=== PATIENT | male | born 1950 | race Caucasian/White ===

== ENCOUNTER 2016-03-04 22:39 | Emergency (ER) | payer MEDICARE ==
[~2016-03-04] VITALS: Ht 172.7 cm; Wt 75.3 kg
[~2016-03-04 22:39] MED LIST: ASPI81TA2 PO; CLOP75TA PO; DEXL60CA PO; DICL75TA PO; DULO30CA2 PO; DULO60CA6 PO; FURO40TA4 PO; INSU100I17 SQ; INSU100V SQ; INSU100V13 SQ; LISI2.5T PO; METO25TA9 PO; MUPI22OI2 TP; NITR0.4T SL; POTA20TA4 PO; SIMV40TA3 PO; VENTOLIN HFA18 GM INH
--- NOTE | 2016-03-05 00:19 | ED.ADGEN ---
Past Medical History Past Medical History: Arrhythmia, CAD, CHF, COPD, Depression, Diabetes-Type II , Other Additional Past Medical Histor: insomnia Past Surgical History: Pacemaker, Other Additional Past Surgical Histo: cardiac cath with stent, removal of cyst from back, STENT IN LT LEG Alcohol Use: None Drug Use: None Adult General Chief Complaint Chief Complaint: OVERDOSE HPI HPI Patient is a 65 year old man, history of COPD, type 2 diabetes mellitus, hypertension, hyperlipidemia, who presents to the emergency department concerned that he may overdosed on his Humalog. Patient states that he came home from work today, and had dinner around 7:00, states that he had before. He states that he took 20 units of his Humalog at 9 PM, states that he wanted eat some ice cream, so he checked his blood sugar about an hour later and noted that it was 415, he then took an additional 20 units of this Humalog. Patient states that he then became concerned that he may overdose and his insulin. He contacted poison control, who told him that he should come to the ED for evaluation, with concerns that he may become hypoglycemic while he was sleeping. States he is having no other symptoms, and is feeling well. Blood glucose upon arrival to the emergency department is 283. Patient states that his sugars usually run between the 100s to 100s, but that he does not check them as often as he is supposed to. And he often just takes his medication without checking his blood sugar. Patient states that he is certain that he last took his Humalog at around 10 PM. Review of Systems Review of Systems Constitutional: Denies fever or chills. [] Eyes: Denies change in visual acuity. [] HENT: Denies nasal congestion or sore throat. [] Respiratory: Denies cough or shortness of breath. [] Cardiovascular: Denies chest pain or edema. [] GI: Denies abdominal pain, nausea, vomiting, bloody stools or diarrhea. [] : Denies dysuria. [] Musculoskeletal: Denies back pain or joint pain. [] Integument: Denies rash. [] Neurologic: Denies headache, focal weakness or sensory changes. [] Endocrine: Denies polyuria or polydipsia. [] Lymphatic: Denies swollen glands. [] Psychiatric: Denies depression or anxiety. [] Allergies Allergies Allergies Coded Allergies Type Severity Reaction Last Updated Verified No Known Drug Allergies 02/01/16 No Physical Exam Physical Exam Constitutional: Well developed, well nourished, no acute distress, non-toxic appearance. [] HENT: Normocephalic, atraumatic, bilateral external ears normal, oropharynx moist, no oral exudates, nose normal. [] Eyes: PERRLA, EOMI, conjunctiva normal, no discharge. [] Neck: Normal range of motion, no tenderness, supple, no stridor. [] Cardiovascular:Heart rate regular rhythm, no murmur , S1, S2, rubs or gallops. [ ] Lungs & Thorax: Diminished breath sounds present at the bases bilaterally, no rhonchi, rales noted, no wheezing, no chest tenderness or crepitus. [] Abdomen: Bowel sounds normal, soft, no tenderness, no masses, no pulsatile masses. [] Skin: Warm, dry, no erythema, no rash. [] Back: No tenderness, no CVA tenderness. [] Extremities: No tenderness, no cyanosis, no clubbing, ROM intact, no edema. [] Neurologic: Alert and oriented X 3, normal motor function, normal sensory function, no focal deficits noted. [] Psychologic: Affect normal, judgement normal, mood normal. [] Current Patient Data Vital Signs Vital Signs Date Time Temp Pulse Resp B/P Pulse Ox O2 Delivery O2 Flow Rate FiO2 03/05/16 00:47 89 127/77 95 Room Air 03/04/16 22:46 97.6 16 97.6 Lab Values Laboratory Tests Test 03/05/16 00:08 03/05/16 00:47 Glucose (Fingerstick) 158mg/dL (70-99) H 125mg/dL (70-99) H EKG EKG ECG: Rhythm strip: Sinus rhythm, heart rate 80 bpm, no ectopy. As interpreted by me. Radiology/Procedures Radiology/Procedures Not indicated. [] Course & Med Decision Making Course & Med Decision Making Pertinent Labs and Imaging studies reviewed. (See chart for details) Patient takes Lantus, in the morning and at night, has not yet taken his nighttime Lantus. Patient well-appearing, has no complaints. Discussed with patient that the peak time for Humalog is about 2 hours after administration, therefore he will soon be at 2 hours after menstruation, and about an hour. Discussed with patient that we will continue to monitor in here, repeat blood sugar at 2 hours and 2 and half hours, and if his sugars still within range is expressing no symptoms, then he'll be cleared to be discharged home. Patient voiced understanding and agreement with this plan, resting comfortably awaiting sugar rechecked. At midnight, 3 hours out from the initial administration of short acting insulin, patient's glucose is 158. At 12:30, patient's blood glucose is now 125. Patient remains asymptomatic in the ED, and he states that he is ready to go home. He states that he will return to the ED if any concerning symptoms as discussed with him at bedside to develop. Patient's only present with him at home. I discussed the patient importance of taking medications as directed, and checking his sugars as directed by his primary care provider. Patient voiced understanding and agreement, will follow up with his primary care provider as for reevaluation of his medication regimen, he'll return to the ED for concerning symptoms as discussed. Dragon Disclaimer Dragon Disclaimer This electronic medical record was generated, in whole or in part, using a voice recognition dictation system. Departure Impression: Primary Impression: Insulin dependent type 2 diabetes mellitus Disposition: HOME, SELF-CARE Condition: IMPROVED LUCY SQUIRES DO Mar 05, 2016 00:19
[2016-03-05 00:47] VITALS: BP 127/77
== END 2016-03-05 01:09 | disposition home or self-care (01) ==
LOC: ER 22:39
DX: E11.9 Type 2 diabetes mellitus without complications (principal); F32.9 Major depressive disorder, single episode, unspecified; G47.00 Insomnia, unspecified; E78.5 Hyperlipidemia, unspecified; I25.10 Atherosclerotic heart disease of native coronary artery without angina pectoris; I11.0 Hypertensive heart disease with heart failure; I50.9 Heart failure, unspecified; Z79.4 Long term (current) use of insulin; J44.9 Chronic obstructive pulmonary disease, unspecified; Z95.0 Presence of cardiac pacemaker; Z95.5 Presence of coronary angioplasty implant and graft
CPT/HCPCS: 82947; 99283

== ENCOUNTER 2016-09-14 00:43 | Emergency (ER) | payer MEDICARE ==
[~2016-09-14] VITALS: Ht 172.7 cm; Wt 77.6 kg
[~2016-09-14 00:43] MED LIST changes: +ASPI-630 PO; -ASPI81TA2 PO; -DEXL60CA PO; +DEXL60CA2 PO
--- NOTE | 2016-09-14 02:59 | ED.ADGEN ---
Past Medical History Past Medical History: Dementia, Diabetes-Type II, High Cholesterol, Other Additional Past Medical Histor: 3 mi's, 3 cva Past Surgical History: Other Additional Past Surgical Histo: 6 stents placed Alcohol Use: None Drug Use: None Adult General Chief Complaint Chief Complaint: BLOOD SUGAR PROBLEM HPI HPI Patient is a 66 year old male with IDDM who presents with AMS and hypoglycemia [employer]. Patient was confused and diaphoretic. Blood sugar was 25. Patient ate and drank with persistent low blood sugar in the 50s. Blood sugar 94 per EMS. No other acute symptoms or complaints. Patient takes Lantus and novlog. last took insulin at 8 PM and last ate at 7 PM. No change in insulin. Patient's spouse state patient may have accidently taking additional insulin this evening. recent illnesses. No other acute symptoms or complaints. Review of Systems Review of Systems ROS as per HPI. Allergies Allergies Allergies Coded Allergies Type Severity Reaction Last Updated Verified No Known Drug Allergies 02/01/16 No Physical Exam Physical Exam Constitutional: Well developed, well nourished, no acute distress, non-toxic appearance. [] HENT: Normocephalic, atraumatic, bilateral external ears normal, oropharynx moist, no oral exudates, nose normal. [] Eyes: PERRLA, EOMI, conjunctiva normal, no discharge. [] Neck: Normal range of motion, no tenderness, supple, no stridor. [] Cardiovascular:Heart rate regular rhythm, no murmur [] Lungs & Thorax: Bilateral breath sounds clear to auscultation [] Abdomen: Bowel sounds normal, soft, no tenderness, no masses, no pulsatile masses. [] Skin: Warm, dry, no erythema, no rash. [] Back: No tenderness, no CVA tenderness. [] Extremities: No tenderness, no cyanosis, no clubbing, ROM intact, no edema. [] Neurologic: Alert and oriented X 3, normal motor function, normal sensory function, no focal deficits noted. [] Psychologic: Affect normal, judgement normal, mood normal. [] Current Patient Data Vital Signs Vital Signs Date Time Temp Pulse Resp B/P (MAP) Pulse Ox O2 Delivery O2 Flow Rate FiO2 09/14/16 00:58 97.5 82 17 154/81 (105) 95 Room Air 97.5 Lab Values Laboratory Tests Test 09/14/16 00:55 09/14/16 01:55 Glucose (Fingerstick) 95 mg/dL (70-99) 94 mg/dL (70-99) EKG EKG [] Radiology/Procedures Radiology/Procedures [] Course & Med Decision Making Course & Med Decision Making Pertinent Labs and Imaging studies reviewed. (See chart for details) [Patient fell upon being brought to the emergency department closely monitored. Repeat blood sugars remain greater than 70. Recommend closely monitoring blood sugars upon returning home and rechecking insulin doses prior to administration. PCP follow-up as needed. Return precautions reviewed.] Dragon Disclaimer Dragon Disclaimer This electronic medical record was generated, in whole or in part, using a voice recognition dictation system. CYNTHIA MARRERO DO Sep 14, 2016 02:59
[2016-09-14 03:00] VITALS: BP 142/66
== END 2016-09-14 03:08 | disposition home or self-care (01) ==
LOC: ER 00:43
DX: E11.649 Type 2 diabetes mellitus with hypoglycemia without coma (principal); E78.00 Pure hypercholesterolemia, unspecified; F03.90 Unspecified dementia, unspecified severity, without behavioral disturbance, psychotic disturbance, mood disturbance, and anxiety; Z86.73 Personal history of transient ischemic attack (TIA), and cerebral infarction without residual deficits; Z79.4 Long term (current) use of insulin; Z95.5 Presence of coronary angioplasty implant and graft
CPT/HCPCS: 82962; 99283

== ENCOUNTER 2017-02-24 10:47 | Inpatient (IN) | payer MEDICARE ==
[2017-02-24] MEDS: IV NORMAL SALINE 1000ML BAG 1,000 ML IV ×5 (12:15→23:07)
[2017-02-24] MEDS: ONDANSETRON PF 4 MG/2 ML VIAL. IV (12:17)
[2017-02-24 12:20] LABS: ADD MAN DIFF? NO
[2017-02-24 12:36] LABS: INR 1.1 (0.8-1.1); PARTIAL THROMBOPLASTIN TIME 26 SEC (24-38); PROTHROMBIN TIME PATIENT 13.7 SEC (11.7-14.0)
[2017-02-24 12:40] LABS: ETHANOL < 10 mg/dL (0-10)
[2017-02-24 12:46] LABS: TROPONINI < 0.017 ng/mL (0.000-0.055)
[2017-02-24 12:47] LABS: ALBUMIN 4.1 g/dL (3.4-5.0); ALBUMIN/GLOBULIN RATIO 0.9 (1.0-1.7); BLOOD UREA NITROGEN 37 mg/dL (8-26); CALCIUM 9.6 mg/dL (8.5-10.1); TOTAL PROTEIN 8.8 g/dL (6.4-8.2)
[2017-02-24 12:48] LABS: ALK PHOS 154 U/L (46-116); ALT (SGPT) 20 U/L (16-63); ANION GAP 29 (6-14); AST (SGOT) 14 U/L (15-37); BUN/CREATININE RATIO 19 (6-20); CHLORIDE 92 mmol/L (98-107); GFR 33.7; LIPASE 125 U/L (73-393); SODIUM 132 mmol/L (136-145)
[2017-02-24 12:58] LABS: BASO # 0.1 x10^3/uL (0.0-0.2); BASO % 1 % (0-3); CARBON DIOXIDE 11 mmol/L (21-32); EOS % 0 % (0-3); GLUCOSE 699 mg/dL (70-99); HEMATOCRIT 45.1 % (39.0-53.0); LYMPH # 1.5 x10^3/uL (1.0-4.8); LYMPH % 14 % (24-48); MEAN CORPUSCULAR HEMOGLOBIN 25 pg (25-35); MEAN CORPUSCULAR HGB CONC 29 g/dL (31-37); MEAN CORPUSCULAR VOLUME 86 fL (79-100); MONO # 0.4 x10^3/uL (0.0-1.1); MONO % 4 % (0-9); NEUT # 8.9 x10^3uL (1.8-7.7); NEUT % 82 % (31-73); PLATELET COUNT 232 x10^3/uL (140-400); POTASSIUM 6.4 mmol/L (3.5-5.1); RED BLOOD COUNT 5.24 x10^6/uL (4.30-5.70); RED CELL DISTRIBUTION WIDTH 19.2 % (11.5-14.5); WHITE BLOOD COUNT 10.8 x10^3/uL (4.0-11.0)
[2017-02-24 13:03] LABS: BILIRUBIN,URINE MODERATE (NEG); CLARITY,URINE CLOUDY; COLOR,URINE YELLOW; GLUCOSE,URINE >=1000 mg/dL (NEG); NITRITE,URINE NEGATIVE (NEG); PROTEIN,URINE NEGATIVE (NEG-TRACE); UROBILINOGEN,URINE 0.2 mg/dL (0.2 mg/dL)
[2017-02-24 13:10] LABS: BARBITURATES NEG (NEG); BENZODIAZEPINES NEG (NEG); CANNABINOIDS NEG (NEG); COCAINE NEG (NEG); METHADONE NEG (NEG); OPIATES NEG (NEG); PHENCYCLIDINE NEG (NEG)
[2017-02-24 13:11] LABS: AMPHETAMINE/METHAMPHETAMINE NEG (NEG); ETHANOL, URINE NEG (NEG)
[2017-02-24] MEDS ORDERED: ONDANSETRON PF 4 MG/2 ML VIAL. IV (13:15)
[2017-02-24 13:17] LABS: BACTERIA,URINE FEW /HPF (0-FEW); HYALINE CASTS, URINE MANY /HPF; SQUAMOUS EPITHELIAL CELL,UR OCC /LPF
[2017-02-24 13:18] LABS: RBC,URINE 0 /HPF (0-2)
[2017-02-24 13:24] LABS: PHOSPHORUS 6.7 mg/dL (2.6-4.7)
[2017-02-24] MEDS: ALBUTEROL SULFATE 2.5 MG/3 ML NEBU. NEB (13:44)
[2017-02-24] MEDS: SODIUM BICARB ADULT 8.4% 50 MEQ/50 ML DISP.SYRIN. IV (13:49)
[2017-02-24] MEDS: LIDO:MAALOX:DONNATAL 1:1:1 15 ML SINGLE DOSE SWSW (13:49)
[2017-02-24] MEDS: IV RINGERS,LACTATED 1000ML 1,000 ML IV (13:50)
[2017-02-24] MEDS: CALCIUM GLUCONATE 1,000 MG/10 ML VIAL. IVP (13:50)
[2017-02-24] MEDS ORDERED: cefTRIAXone SODIUM 2 GM in IV DEXTROSE 5% 100 ML IV (14:00)
[2017-02-24] MEDS: INSULIN,REGULAR 150 UNIT DRIP 150 ML IV (14:25)
[2017-02-24] MEDS: AZITHROMYCIN 250 MG TABLET. PO (15:45)
[2017-02-24] MEDS: cefTRIAXone IV Push 2 GM VIAL. IVP (15:45)
[2017-02-24 15:51] LABS: POC GLUCOSE 576 mg/dL (70-99)
[2017-02-24 15:52] LABS: POC GLUCOSE 466 mg/dL (70-99)
[2017-02-24 16:21] LABS: ANION GAP 27 (6-14); BLOOD UREA NITROGEN 33 mg/dL (8-26); CALCIUM 8.7 mg/dL (8.5-10.1); CHLORIDE 98 mmol/L (98-107); CREATININE 1.6 mg/dL (0.7-1.3); GFR 43.6; PHOSPHORUS 5.4 mg/dL (2.6-4.7); POTASSIUM 5.7 mmol/L (3.5-5.1); SODIUM 134 mmol/L (136-145)
[2017-02-24 16:28] LABS: CARBON DIOXIDE 9 mmol/L (21-32); GLUCOSE 510 mg/dL (70-99)
[2017-02-24 16:58] LABS: POC GLUCOSE 450 mg/dL (70-99)
[2017-02-24 17:09] LABS: BASE EXCESS ABG -19 mmol/L (-3-3); HCO3 ABG 8 mmol/L (21-28); PCO2 ABG 22 mmHg (35-46); PO2 ABG 88 mmHg (65-108); SAT O2 ABG 94 % (92-99)
[2017-02-24 17:12] LABS: FIO2 ABG 21; PH ABG 7.16 (7.35-7.45)
[2017-02-24 18:04] LABS: POC GLUCOSE 348 mg/dL (70-99)
[2017-02-24 19:24] LABS: POC GLUCOSE 405 mg/dL (70-99)
[2017-02-24 20:15] LABS: POC GLUCOSE 373 mg/dL (70-99)
[2017-02-24 20:22] LABS: ANION GAP 19 (6-14); BLOOD UREA NITROGEN 31 mg/dL (8-26); CARBON DIOXIDE 16 mmol/L (21-32); CHLORIDE 103 mmol/L (98-107); CREATININE 1.6 mg/dL (0.7-1.3); GFR 43.6; GLUCOSE 403 mg/dL (70-99); MAGNESIUM 1.8 mg/dL (1.8-2.4); PHOSPHORUS 3.9 mg/dL (2.6-4.7); POTASSIUM 4.9 mmol/L (3.5-5.1); SODIUM 138 mmol/L (136-145)
[2017-02-24 21:12] LABS: POC GLUCOSE 342 mg/dL (70-99)
[2017-02-24] MEDS: ZOLPIDEM 5 MG TABLET. PO (22:09)
[2017-02-24 22:13] LABS: POC GLUCOSE 260 mg/dL (70-99)
[2017-02-24 23:12] LABS: POC GLUCOSE 260 mg/dL (70-99)
[2017-02-25 00:12] LABS: POC GLUCOSE 228 mg/dL (70-99)
[2017-02-25] MEDS: IV DEXTROSE 5 %-0.45 % NACL 1,000 ML IV ×3 (00:45→08:46)
[2017-02-25] MEDS: IV NORMAL SALINE 1000ML BAG 1,000 ML IV ×3 (01:05→08:46)
[2017-02-25 01:10] LABS: POC GLUCOSE 152 mg/dL (70-99)
[2017-02-25 01:18] LABS: ANION GAP 11 (6-14); BLOOD UREA NITROGEN 26 mg/dL (8-26); CALCIUM 7.9 mg/dL (8.5-10.1); CARBON DIOXIDE 21 mmol/L (21-32); CHLORIDE 106 mmol/L (98-107); CREATININE 1.4 mg/dL (0.7-1.3); GFR 50.9; GLUCOSE 194 mg/dL (70-99); MAGNESIUM 1.7 mg/dL (1.8-2.4); PHOSPHORUS 1.7 mg/dL (2.6-4.7); POTASSIUM 3.7 mmol/L (3.5-5.1); SODIUM 138 mmol/L (136-145)
[2017-02-25] MEDS: MAGNESIUM SULFATE 4GM 100 ML IV (01:57)
[2017-02-25] MEDS: POTASSIUM CL 40MEQ D5-0.45NACL 1,000 ML IV (02:01)
[2017-02-25] MEDS: SODIUM PHOSPHATE 20 MMOL in IV DEXTROSE 5% 250 ML IV (02:01)
[2017-02-25 02:12] LABS: MRSA BY PCR Negative (Negative)
[2017-02-25 02:15] LABS: POC GLUCOSE 132 mg/dL (70-99)
[2017-02-25 03:08] LABS: POC GLUCOSE 154 mg/dL (70-99)
[2017-02-25] MEDS: INSULIN REGULAR VIAL 150 UNIT in 0.9 % SODIUM CHLORIDE 150ML 150 ML IV (04:05)
[2017-02-25 04:10] LABS: POC GLUCOSE 126 mg/dL (70-99)
[2017-02-25 05:07] LABS: POC GLUCOSE 114 mg/dL (70-99)
[2017-02-25 06:16] LABS: POC GLUCOSE 127 mg/dL (70-99)
[2017-02-25 07:04] LABS: POC GLUCOSE 124 mg/dL (70-99)
[2017-02-25 07:17] LABS: ANION GAP 10 (6-14); BLOOD UREA NITROGEN 20 mg/dL (8-26); CALCIUM 7.8 mg/dL (8.5-10.1); CARBON DIOXIDE 20 mmol/L (21-32); CHLORIDE 107 mmol/L (98-107); CREATININE 1.1 mg/dL (0.7-1.3); GFR 67.2; GLUCOSE 122 mg/dL (70-99); PHOSPHORUS 3.4 mg/dL (2.6-4.7); POTASSIUM 3.9 mmol/L (3.5-5.1); SODIUM 137 mmol/L (136-145)
[2017-02-25] MEDS: INSULIN ASPART 300 UNITS/3 ML INSULN.PEN SQ ×3 (08:00→16:27)
[2017-02-25] MEDS: INSULIN DETEMIR 300 UNITS/3 ML INSULN.PEN. SQ ×2 (08:40→21:39)
[2017-02-25 08:41] LABS: POC GLUCOSE 128 mg/dL (70-99)
[2017-02-25 11:48] LABS: POC GLUCOSE 147 mg/dL (70-99)
[2017-02-25] MEDS: cefTRIAXone IV Push 2 GM VIAL. IVP (15:38)
[2017-02-25 16:29] LABS: POC GLUCOSE 123 mg/dL (70-99)
[2017-02-25 21:34] LABS: POC GLUCOSE 128 mg/dL (70-99)
[2017-02-25] MEDS: LACTOBACILLUS RHAMNOSUS GG 1 CAPSULE. PO (21:34)
[2017-02-25] MEDS: BENZONATATE 100 MG CAPSULE. PO (21:34)
[2017-02-26 07:14] LABS: ADD MAN DIFF? NO
[2017-02-26 07:50] LABS: ALBUMIN 2.8 g/dL (3.4-5.0); ALBUMIN/GLOBULIN RATIO 0.7 (1.0-1.7); ALK PHOS 101 U/L (46-116); ALT (SGPT) 21 U/L (16-63); ANION GAP 11 (6-14); AST (SGOT) 29 U/L (15-37); BLOOD UREA NITROGEN 11 mg/dL (8-26); BUN/CREATININE RATIO 12 (6-20); CALCIUM 8.2 mg/dL (8.5-10.1); CARBON DIOXIDE 23 mmol/L (21-32); CHLORIDE 110 mmol/L (98-107); CREATININE 0.9 mg/dL (0.7-1.3); GFR 84.7; PHOSPHORUS 3.5 mg/dL (2.6-4.7); POTASSIUM 3.5 mmol/L (3.5-5.1); SODIUM 144 mmol/L (136-145); TOTAL BILIRUBIN 0.3 mg/dL (0.2-1.0); TOTAL PROTEIN 6.6 g/dL (6.4-8.2)
[2017-02-26 07:54] LABS: GLUCOSE 35 mg/dL (70-99)
[2017-02-26] MEDS: INSULIN DETEMIR 300 UNITS/3 ML INSULN.PEN. SQ (08:00)
[2017-02-26] MEDS: INSULIN ASPART 300 UNITS/3 ML INSULN.PEN SQ ×4 (08:00→20:40)
[2017-02-26] MEDS: DEXTROSE 50% 25 GM / 50ML DISP.SYRIN. IV (08:08)
[2017-02-26] MEDS: LACTOBACILLUS RHAMNOSUS GG 1 CAPSULE. PO ×2 (08:09→20:34)
[2017-02-26 08:16] LABS: POC GLUCOSE 42 mg/dL (70-99)
[2017-02-26 09:10] LABS: BASO % 1 % (0-3); EOS # 0.3 x10^3/uL (0.0-0.7); EOS % 4 % (0-3); HEMATOCRIT 34.5 % (39.0-53.0); HEMOGLOBIN 10.9 g/dL (13.0-17.5); LYMPH # 3.4 x10^3/uL (1.0-4.8); LYMPH % 41 % (24-48); MEAN CORPUSCULAR HEMOGLOBIN 25 pg (25-35); MEAN CORPUSCULAR HGB CONC 32 g/dL (31-37); MEAN CORPUSCULAR VOLUME 78 fL (79-100); MONO # 0.5 x10^3/uL (0.0-1.1); MONO % 6 % (0-9); NEUT % 48 % (31-73); PLATELET COUNT 169 x10^3/uL (140-400); RED BLOOD COUNT 4.42 x10^6/uL (4.30-5.70); RED CELL DISTRIBUTION WIDTH 18.8 % (11.5-14.5); WHITE BLOOD COUNT 8.3 x10^3/uL (4.0-11.0)
[2017-02-26 11:48] LABS: POC GLUCOSE 249 mg/dL (70-99)
[2017-02-26] MEDS: BENZONATATE 100 MG CAPSULE. PO (11:58)
[2017-02-26 12:42] LABS: POC GLUCOSE 201 mg/dL (70-99)
[2017-02-26 12:44] LABS: POC GLUCOSE 42 mg/dL (70-99)
[2017-02-26] MEDS: CEFPODOXIME PROXETIL 100 MG TABLET. PO ×2 (14:53→20:34)
[2017-02-26 16:50] LABS: POC GLUCOSE 245 mg/dL (70-99)
[2017-02-26 20:31] LABS: POC GLUCOSE 389 mg/dL (70-99)
[2017-02-26] MEDS: ZOLPIDEM 5 MG TABLET. PO (21:55)
[2017-02-27 05:04] LABS: ANION GAP 8 (6-14); BLOOD UREA NITROGEN 13 mg/dL (8-26); CALCIUM 8.6 mg/dL (8.5-10.1); CARBON DIOXIDE 27 mmol/L (21-32); CHLORIDE 104 mmol/L (98-107); CREATININE 0.8 mg/dL (0.7-1.3); GLUCOSE 305 mg/dL (70-99); SODIUM 139 mmol/L (136-145)
[2017-02-27 07:20] LABS: POC GLUCOSE 388 mg/dL (70-99)
[2017-02-27] MEDS: INSULIN ASPART 300 UNITS/3 ML INSULN.PEN SQ ×4 (08:19→17:00)
[2017-02-27] MEDS: INSULIN DETEMIR 300 UNITS/3 ML INSULN.PEN. SQ ×2 (08:20→21:28)
[2017-02-27] MEDS: LACTOBACILLUS RHAMNOSUS GG 1 CAPSULE. PO ×2 (09:28→21:26)
[2017-02-27] MEDS: CEFPODOXIME PROXETIL 100 MG TABLET. PO ×2 (09:28→21:26)
[2017-02-27 11:50] LABS: POC GLUCOSE 250 mg/dL (70-99)
[2017-02-27 17:07] LABS: POC GLUCOSE 126 mg/dL (70-99)
[2017-02-27 21:15] LABS: POC GLUCOSE 155 mg/dL (70-99)
[2017-02-27] MEDS: ZOLPIDEM 5 MG TABLET. PO (21:28)
[2017-02-28 07:18] LABS: POC GLUCOSE 87 mg/dL (70-99)
[2017-02-28] MEDS: INSULIN ASPART 300 UNITS/3 ML INSULN.PEN SQ (08:00)
[2017-02-28] MEDS: CEFPODOXIME PROXETIL 100 MG TABLET. PO (09:16)
[2017-02-28] MEDS: LACTOBACILLUS RHAMNOSUS GG 1 CAPSULE. PO (09:16)
[2017-02-28] MEDS: INSULIN DETEMIR 300 UNITS/3 ML INSULN.PEN. SQ (09:19)
== END 2017-02-28 11:00 | disposition home or self-care (01) | DRG 682 ==
LOC: 5 SOUTH 02-25 14:13 → ER 10:47 → 4 SOUTHWST 02-26 18:01 → ED HOLD 13:06 → 1 WEST ICU 14:01
DX: N17.0 Acute kidney failure with tubular necrosis (principal); J12.9 Viral pneumonia, unspecified; E11.10 Type 2 diabetes mellitus with ketoacidosis without coma; E11.22 Type 2 diabetes mellitus with diabetic chronic kidney disease; I13.0 Hypertensive heart and chronic kidney disease with heart failure and stage 1 through stage 4 chronic kidney disease, or unspecified chronic kidney disease; E87.1 Hypo-osmolality and hyponatremia; J44.0 Chronic obstructive pulmonary disease with (acute) lower respiratory infection; I50.9 Heart failure, unspecified; F03.90 Unspecified dementia, unspecified severity, without behavioral disturbance, psychotic disturbance, mood disturbance, and anxiety; E11.51 Type 2 diabetes mellitus with diabetic peripheral angiopathy without gangrene; E78.00 Pure hypercholesterolemia, unspecified; E78.5 Hyperlipidemia, unspecified; E86.0 Dehydration; E87.5 Hyperkalemia; F32.9 Major depressive disorder, single episode, unspecified; M19.90 Unspecified osteoarthritis, unspecified site; I73.9 Peripheral vascular disease, unspecified; I25.10 Atherosclerotic heart disease of native coronary artery without angina pectoris; K21.9 Gastro-esophageal reflux disease without esophagitis; N18.9 Chronic kidney disease, unspecified; Z79.4 Long term (current) use of insulin; Z82.49 Family history of ischemic heart disease and other diseases of the circulatory system; I25.2 Old myocardial infarction; Z86.73 Personal history of transient ischemic attack (TIA), and cerebral infarction without residual deficits; Z91.14 Patient's other noncompliance with medication regimen
CPT/HCPCS: 36415; 36600; 71045; 71046; 80048; 80053; 80307; 81001; 82805; 82962; 83690; 83735; 84100; 84484; 85025; 85610; 85730; 87641; 93005; 96361; 96365; 96375; 99291; 99291-25; G0480; J0610; J0696; J1815; J2405; J3475; J7030; J7042; J7120; J7613; Q0144

== ENCOUNTER 2017-09-19 20:25 | Emergency (ER) | payer MEDICARE ==
[2017-09-19 20:31] LABS: POC GLUCOSE 80 mg/dL (70-99)
[2017-09-19 20:57] LABS: ADD MAN DIFF? NO
[2017-09-19 20:58] LABS: BASO % 0 % (0-3); EOS # 0.4 x10^3/uL (0.0-0.7); EOS % 5 % (0-3); HEMATOCRIT 41.6 % (39.0-53.0); HEMOGLOBIN 13.7 g/dL (13.0-17.5); LYMPH # 1.4 x10^3/uL (1.0-4.8); LYMPH % 18 % (24-48); MEAN CORPUSCULAR HEMOGLOBIN 29 pg (25-35); MEAN CORPUSCULAR HGB CONC 33 g/dL (31-37); MEAN CORPUSCULAR VOLUME 86 fL (79-100); MONO # 0.9 x10^3/uL (0.0-1.1); MONO % 11 % (0-9); NEUT # 5.4 x10^3uL (1.8-7.7); NEUT % 66 % (31-73); PLATELET COUNT 221 x10^3/uL (140-400); RED BLOOD COUNT 4.82 x10^6/uL (4.30-5.70); WHITE BLOOD COUNT 8.1 x10^3/uL (4.0-11.0)
[2017-09-19 21:08] LABS: ANION GAP 9 (6-14); BLOOD UREA NITROGEN 18 mg/dL (8-26); BUN/CREATININE RATIO 18 (6-20); CALCIUM 9.7 mg/dL (8.5-10.1); CARBON DIOXIDE 29 mmol/L (21-32); CHLORIDE 106 mmol/L (98-107); GFR 74.8; GLUCOSE 52 mg/dL (70-99); POTASSIUM 4.4 mmol/L (3.5-5.1); SODIUM 144 mmol/L (136-145)
[2017-09-19 21:14] LABS: ALBUMIN 3.5 g/dL (3.4-5.0); ALBUMIN/GLOBULIN RATIO 0.8 (1.0-1.7); ALK PHOS 159 U/L (46-116); ALT (SGPT) 23 U/L (16-63); AST (SGOT) 17 U/L (15-37); LIPASE 445 U/L (73-393); TOTAL BILIRUBIN 0.5 mg/dL (0.2-1.0); TOTAL PROTEIN 7.7 g/dL (6.4-8.2)
[2017-09-19] MEDS ORDERED: DEXTROSE 50% 25 GM / 50ML DISP.SYRIN. IV (21:19)
[2017-09-19] MEDS: DEXTROSE 50% 25 GM / 50ML DISP.SYRIN. IV (21:21)
[2017-09-19 21:25] LABS: TROPONINI < 0.017 ng/mL (0.000-0.055)
[2017-09-19 21:59] LABS: POC GLUCOSE 136 mg/dL (70-99)
[2017-09-19 22:46] LABS: POC GLUCOSE 138 mg/dL (70-99)
== END 2017-09-19 23:30 | disposition home or self-care (01) ==
LOC: ER 20:25
DX: E10.649 Type 1 diabetes mellitus with hypoglycemia without coma (principal); F03.90 Unspecified dementia, unspecified severity, without behavioral disturbance, psychotic disturbance, mood disturbance, and anxiety; E78.00 Pure hypercholesterolemia, unspecified; K21.9 Gastro-esophageal reflux disease without esophagitis; I10 Essential (primary) hypertension; E10.22 Type 1 diabetes mellitus with diabetic chronic kidney disease; I12.9 Hypertensive chronic kidney disease with stage 1 through stage 4 chronic kidney disease, or unspecified chronic kidney disease; N18.9 Chronic kidney disease, unspecified; Z86.73 Personal history of transient ischemic attack (TIA), and cerebral infarction without residual deficits; I25.10 Atherosclerotic heart disease of native coronary artery without angina pectoris; Z79.4 Long term (current) use of insulin; I25.2 Old myocardial infarction; Z95.5 Presence of coronary angioplasty implant and graft
CPT/HCPCS: 36415; 80053; 82962; 83690; 84484; 85025; 93005; 96374; 99285-25; J7042

== ENCOUNTER → 2017-12-02 | Outpatient (CLI) | payer MEDICARE ==
[2017-11-12 09:53] VITALS: BP 104/58
[~2017-12-02] MED LIST changes: +ATOR40TA59 PO; +BUPR150T6 PO; +CARV3.12 PO; +CHOL500050 PO; +DONE10TA61 PO; +FERR325T14 PO; +GABA-585 PO; +HYDR-971 PO; +INSU100I11 SQ; +INSU100I30 SQ; +INSU12CA IH; +LEVO25TA4 PO; +MEMA1CAP3 PO; +METO-239 PO; -METO25TA9 PO; +POTA10TA12 PO; +ZOLP5TAB PO; +[UNRECOGNIZED DRUG - CODE] PO
--- NOTE | 2017-12-02 11:02 | KCIC ---
EXAM: Left ankle, 2 views. HISTORY: Pain with weightbearing. COMPARISON: None. FINDINGS: 2 views left ankle are obtained. There are tiny ossicles inferior to the medial malleolus, one of which may be an acute avulsion fracture fragment and the other of which may be due to the sequela of remote injury. There is a nondisplaced or minimally displaced oblique fracture of the distal fibular metadiaphysis. There is ankle soft tissue swelling. There is no osteochondral lesion. IMPRESSION: 1. Tiny ossicles inferior to the medial malleolus, one of which may be due to an acute avulsion fracture fragment and the other which may be due to the sequela of remote injury. This is superimposed on soft tissue swelling. 2. Nondisplaced or minimally displaced oblique fracture of the distal fibular metadiaphysis. This is not well profiled given the absence of a mortise or oblique projection. Correlate for pain in this location. Electronically signed by: Shannon Alves MD (12/02/2017 10:58 AM) [facility]
== END | disposition home or self-care (01) ==
LOC: KCIC 10:26
PROVIDERS: ATTEND Family Medicine
DX: M25.572 Pain in left ankle and joints of left foot (principal); M79.89 Other specified soft tissue disorders
CPT/HCPCS: 73600

== ENCOUNTER 2017-12-04 11:31 | Emergency (ER) | payer MEDICARE ==
[~2017-12-04] VITALS: Ht 170.2 cm; Wt 72.6 kg
[~2017-12-04 11:31] MED LIST changes: -HYDR-971 PO
[2017-12-04 11:47] VITALS: BP 101/55
[2017-12-04] MEDS ORDERED: NAPROXEN 500 MG TABLET PO STA (11:55)
[2017-12-04] MEDS ORDERED: HYDROcodone/APAP 5/325MG 1 TAB TABLET PO ONE (12:00)
--- NOTE | 2017-12-04 12:04 | PHYS DOC ---
Past Medical History Past Medical History: CAD, CVA, Dementia, Depression, Diabetes-Type II, GERD, High Cholesterol, Hypertension, [place], Renal Failure, Other Additional Past Medical Histor: 4 mi's, 4 cva, PM; DKA Past Surgical History: Angioplasty, Other Additional Past Surgical Histo: 6 stents placed, recent toe amputation left foot Alcohol Use: None Drug Use: None Adult General Chief Complaint Chief Complaint: FOOT INJURY PAIN HPI HPI Patient is a 67 year old male with history of hypertension, diabetes type 2, high cholesterol, CAD, pacemaker, who presents today for moderate pain on the left foot. Patient states he fell one week ago. He states he was seen by the PCP yesterday, they did x-rays of the left foot which were noted for a small fracture. He states he was supposed to follow-up with orthopedic doctor today but the clinic is closed. Review of Systems Review of Systems Constitutional: Denies fever or chills [] Musculoskeletal: Reports left foot pain Integument: Denies rash or skin lesions [] Neurologic: Denies headache, focal weakness or sensory changes [] All other systems were reviewed and found to be within normal limits, except as documented in this note. Current Medications Current Medications Current Medications Medications (Trade) Dose Ordered Sig/Amalia Start Time Stop Time Status Last Admin Dose Admin Acetaminophen/ Hydrocodone Bitart (Lortab 5/325) 1 tab 1X ONCE 12/04/17 12:00 12/04/17 12:01 DC Naproxen (Naprosyn) 500 mg 1X STAT 12/04/17 11:55 12/04/17 11:57 DC Allergies Allergies Allergies Coded Allergies Type Severity Reaction Last Updated Verified No Known Drug Allergies 11/22/16 No Physical Exam Physical Exam Constitutional: Well developed, well nourished, no acute distress, non-toxic appearance. [] Skin: Warm, dry, no erythema, no rash. [] Back: No tenderness, no CVA tenderness. [] Extremities: Left foot with amputated left great toe as well as third toe. There is scabbing over the amputation site. There is trace erythema over the toes. There is +1 edema to the left lower extremity. +1 left pedal pulse. Neurologic: Alert and oriented X 3, normal motor function, normal sensory function, no focal deficits noted. [] Psychologic: Affect normal, judgement normal, mood normal. [] Current Patient Data Vital Signs Vital Signs Date Time Temp Pulse Resp B/P (MAP) Pulse Ox O2 Delivery O2 Flow Rate FiO2 12/04/17 11:47 98.1 92 18 101/55 (70) 95 Room Air 98.1 EKG EKG [] Radiology/Procedures Radiology/Procedures [] Course & Med Decision Making Course & Med Decision Making This is a 67-year-old male patient presenting to the ED today with left foot pain. Patient fell a week ago, had x-rays done yesterday which showed he has left foot fracture. Was supposed to be seen by the orthopedic doctor today but the office is closed. Patient was placed in orthopedic shoe in the ED by the ED RN, neurovascular exam is intact. Ice elevation encouraged. Discharged with hydrocodone as needed for pain. Instructed to contact the orthopedic doctor's office and set up a follow-up appointment. Dragon Disclaimer Dragon Disclaimer This electronic medical record was generated, in whole or in part, using a voice recognition dictation system. Departure Departure Impression: Primary Impression: Left foot pain Disposition: HOME, SELF-CARE Condition: STABLE Referrals: LOPEZ MCKAY MD (PCP) LINO GARAY MD call his office as soon as you can and set up a follow up appointment Patient Instructions: Foot Fracture-Brief Additional Instructions: You were evaluated in the emergency for left foot pain, you can take 1-2 tablets of hydrocodone as needed for pain. Try to ice and elevate the extremity. Contact the orthopedic doctor's office today and set up a follow-up appointment as an outpatient. Scripts Hydrocodone/Apap 5-325 (NORCO 5-325 TABLET) 1 Each Tablet 1-2 TAB PO Q4-6HRS PRN for PAIN, #20 TAB Prov: SHYAM BOWER APRN 12/04/17 SHYAM BOWER APRN Dec 04, 2017 12:04
[2017-12-04] MEDS ORDERED: HYDR-971 PO (12:14)
== END 2017-12-04 12:34 | disposition home or self-care (01) ==
LOC: ER 11:31
DX: M79.672 Pain in left foot (principal); G89.11 Acute pain due to trauma; I12.9 Hypertensive chronic kidney disease with stage 1 through stage 4 chronic kidney disease, or unspecified chronic kidney disease; N18.9 Chronic kidney disease, unspecified; E11.22 Type 2 diabetes mellitus with diabetic chronic kidney disease; E11.10 Type 2 diabetes mellitus with ketoacidosis without coma; K21.9 Gastro-esophageal reflux disease without esophagitis; E78.00 Pure hypercholesterolemia, unspecified; F03.90 Unspecified dementia, unspecified severity, without behavioral disturbance, psychotic disturbance, mood disturbance, and anxiety; I25.10 Atherosclerotic heart disease of native coronary artery without angina pectoris; I25.2 Old myocardial infarction; Z86.73 Personal history of transient ischemic attack (TIA), and cerebral infarction without residual deficits; Z95.5 Presence of coronary angioplasty implant and graft; W18.39XA Other fall on same level, initial encounter; Y93.89 Activity, other specified; Y92.89 Other specified places as the place of occurrence of the external cause; Y99.8 Other external cause status
CPT/HCPCS: 99283

== ENCOUNTER 2018-06-10 09:26 | Inpatient (IN) | payer MEDICARE ==
[~2018-06-10] VITALS: Ht 172.7 cm; Wt 64.4 kg
[2018-06-10] VITALS (12 sets, daily range): BP systolic 82–113; BP diastolic 31–53
[~2018-06-10 09:26] MED LIST changes: +HYDR-3164 PO
[2018-06-10] MEDS ORDERED: INSULIN REGULAR 100 UNIT/ML 3ML VIAL. IV ONE (09:45)
[2018-06-10] MEDS ORDERED: INSULIN REGULAR VIAL 150 UNIT in 0.9 % SODIUM CHLORIDE 150ML 150 ML IV PRN (09:45)
[2018-06-10] MEDS ORDERED: IV NORMAL SALINE 1000ML BAG 1,000 ML IV ONE ×3 (09:45→10:15)
[2018-06-10] MEDS ORDERED: INSULIN,REGULAR 150 UNIT DRIP 150 ML IV ONE (09:45)
[2018-06-10 09:56] LABS: BASE EXCESS ABG -19 mmol/L (-3-3); HCO3 ABG 7 mmol/L (21-28); PO2 ABG 99 mmHg (65-108); SAT O2 ABG 96 % (92-99)
[2018-06-10 09:58] LABS: PCO2 ABG 19 mmHg (35-46)
[2018-06-10 10:21] LABS: ALBUMIN 3.3 g/dL (3.4-5.0); ALBUMIN/GLOBULIN RATIO 0.9 (1.0-1.7); CALCIUM 9.4 mg/dL (8.5-10.1); CREATININE 2.3 mg/dL (0.7-1.3); GFR 28.6; MAGNESIUM 2.1 mg/dL (1.8-2.4); PHOSPHORUS 7.6 mg/dL (2.6-4.7); TOTAL BILIRUBIN 0.8 mg/dL (0.2-1.0); TOTAL PROTEIN 6.9 g/dL (6.4-8.2)
[2018-06-10 10:23] LABS: CREATINE KINASE 42 U/L (39-308)
[2018-06-10 10:32] LABS: BASO % 0 % (0-3); EOS % 0 % (0-3); HEMATOCRIT 40.3 % (39.0-53.0); HEMOGLOBIN 11.8 g/dL (13.0-17.5); LYMPH # 0.6 x10^3/uL (1.0-4.8); LYMPH % 5 % (24-48); MEAN CORPUSCULAR HEMOGLOBIN 26 pg (25-35); MEAN CORPUSCULAR HGB CONC 29 g/dL (31-37); MEAN CORPUSCULAR VOLUME 89 fL (79-100); MONO # 0.6 x10^3/uL (0.0-1.1); MONO % 5 % (0-9); NEUT # 10.1 x10^3uL (1.8-7.7); NEUT % 89 % (31-73); PLATELET COUNT 186 x10^3/uL (140-400); RED BLOOD COUNT 4.51 x10^6/uL (4.30-5.70); RED CELL DISTRIBUTION WIDTH 17.6 % (11.5-14.5); WHITE BLOOD COUNT 11.3 x10^3/uL (4.0-11.0)
--- NOTE | 2018-06-10 10:32 | PHYS DOC ---
Past Medical History Past Medical History: CAD, CVA, Dementia, Depression, Diabetes-Type II, GERD, High Cholesterol, Hypertension, [place], Renal Failure, Other Additional Past Medical Histor: 4 mi's, 4 cva, PM; DKA Past Surgical History: Angioplasty, Other Additional Past Surgical Histo: 6 stents placed, recent toe amputation left foot Alcohol Use: None Drug Use: None Adult General Chief Complaint Chief Complaint: HYPERGLYCEMIA HPI HPI Patient is a 67 year old male with history of type 1 diabetes mellitus resident of [facility] brought in by EMS because of generalized weakness and nausea and vomiting. Patient didn't feel good for the last one week and sin ce midnight has had an episode of nausea and vomiting. Patient has dementia and unable to give history but EMS reported the patient had blood pressure of 80/50 with tachycardia 120s and blood sugar read as high. Patient was treated with 8 mg Zofran given at [facility] with improvement of vomiting. Patient had blood pressure of 80s and EMS was not able to start IV line. Patient has had multiple hospitalization for DKA. Review of Systems Review of Systems Constitutional: Denies fever or chills [] Eyes: Denies change in visual acuity, redness, or eye pain [] HENT: Denies nasal congestion or sore throat [] Respiratory: Denies cough or shortness of breath [] Cardiovascular: No additional information not addressed in HPI [] GI: Denies abdominal pain, reports nausea, vomiting.] : Denies dysuria or hematuria [] Musculoskeletal: Denies back pain or joint pain [] Integument: Denies rash or skin lesions [] Neurologic: Denies headache, focal weakness or sensory changes [] Endocrine: Denies polyuria or polydipsia [] All other systems were reviewed and found to be within normal limits, except as documented in this note. Current Medications Current Medications Current Medications Medications (Trade) Dose Ordered Sig/Amalia Start Time Stop Time Status Last Admin Dose Admin Insulin Human Regular 150 ml @ 0 mls/hr 1X ONCE 06/10/18 09:45 06/10/18 09:46 DC 06/10/18 10:58 18.9 MLS/HR Insulin Human Regular (HumuLIN R VIAL) 10 unit 1X ONCE 06/10/18 09:45 06/10/18 09:46 DC 06/10/18 10:11 10 UNIT Insulin Human Regular 150 unit/ Sodium Chloride 151.5 ml @ 0 mls/hr CONT PRN 06/10/18 09:45 06/10/18 21:07 DC Sodium Chloride 1,000 ml @ 1,000 mls/hr 1X ONCE 06/10/18 09:45 06/10/18 10:44 DC 06/10/18 09:58 1,000 MLS/HR Allergies Allergies Allergies Coded Allergies Type Severity Reaction Last Updated Verified No Known Drug Allergies 11/22/16 No Physical Exam Physical Exam Constitutional: Moderate distress, non-toxic appearance. [] HENT: Normocephalic, atraumatic, oropharynx dry. Eyes: PERRLA, EOMI, conjunctiva normal, no discharge. [] Neck: Normal range of motion, no tenderness, supple, no stridor. [] Cardiovascular: Tachycardia, no murmur [] Lungs & Thorax: Bilateral breath sounds clear to auscultation [] Abdomen: Bowel sounds normal, soft, no tenderness, no masses, no pulsatile masses. [] Skin: Warm, dry, no erythema, no rash. [] Back: No tenderness, no CVA tenderness. [] Extremities: No tenderness, no cyanosis, no clubbing, ROM intact, no edema. [] Neurologic: Alert and oriented X 1, normal motor function, normal sensory function, no focal deficits noted. [] Psychologic: Affect anxious Current Patient Data Vital Signs Vital Signs Date Time Temp Pulse Resp B/P (MAP) Pulse Ox O2 Delivery O2 Flow Rate FiO2 06/10/18 10:09 106 107/53 (71) 100 Room Air 06/10/18 09:26 97.6 19 97.6 Lab Values Laboratory Tests Test 06/10/18 09:30 06/10/18 09:40 06/10/18 09:50 White Blood Count 11.3 x10^3/uL (4.0-11.0) H Red Blood Count 4.51 x10^6/uL (4.30-5.70) Hemoglobin 11.8 g/dL (13.0-17.5) L Hematocrit 40.3 % (39.0-53.0) Mean Corpuscular Volume 89 fL (79-100) Mean Corpuscular Hemoglobin 26 pg (25-35) Mean Corpuscular Hemoglobin Concent 29 g/dL (31-37) L Red Cell Distribution Width 17.6 % (11.5-14.5) H Platelet Count 186 x10^3/uL (140-400) Neutrophils (%) (Auto) 89 % (31-73) H Lymphocytes (%) (Auto) 5 % (24-48) L Monocytes (%) (Auto) 5 % (0-9) Eosinophils (%) (Auto) 0 % (0-3) Basophils (%) (Auto) 0 % (0-3) Neutrophils # (Auto) 10.1 x10^3uL (1.8-7.7) H Lymphocytes # (Auto) 0.6 x10^3/uL (1.0-4.8) L Monocytes # (Auto) 0.6 x10^3/uL (0.0-1.1) Eosinophils # (Auto) 0.0 x10^3/uL (0.0-0.7) Basophils # (Auto) 0.0 x10^3/uL (0.0-0.2) Segmented Neutrophils % 88 % (35-66) H Band Neutrophils % 5 % (0-9) Lymphocytes % 2 % (24-48) L Monocytes % 5 % (0-10) Platelet Estimate Adequate (ADEQUATE) Poikilocytosis Present Sodium Level 127 mmol/L (136-145) L Potassium Level 5.9 mmol/L (3.5-5.1) H Chloride Level 86 mmol/L (98-107) L Carbon Dioxide Level 7 mmol/L (21-32) *L Anion Gap 34 (6-14) H Blood Urea Nitrogen 41 mg/dL (8-26) H Creatinine 2.3 mg/dL (0.7-1.3) H Estimated GFR (Cockcroft-Gault) 28.6 BUN/Creatinine Ratio 18 (6-20) Glucose Level 1006 mg/dL (70-99) *H Lactic Acid Level 5.8 mmol/L (0.4-2.0) *H Calcium Level 9.4 mg/dL (8.5-10.1) Phosphorus Level 7.6 mg/dL (2.6-4.7) H Magnesium Level 2.1 mg/dL (1.8-2.4) Total Bilirubin 0.8 mg/dL (0.2-1.0) Aspartate Amino Transferase (AST) 14 U/L (15-37) L Alanine Aminotransferase (ALT) 15 U/L (16-63) L Alkaline Phosphatase 162 U/L (46-116) H Creatine Kinase 42 U/L (39-308) Creatine Kinase MB (Mass) 2.5 ng/mL (0.0-3.6) Creatine Kinase MB Relative Index % (0-4) Troponin I Quantitative 0.022 ng/mL (0.000-0.055) VM-Mmo-Y-Type Natriuretic Peptide 46358 pg/mL (0-124) H Total Protein 6.9 g/dL (6.4-8.2) Albumin 3.3 g/dL (3.4-5.0) L Albumin/Globulin Ratio 0.9 (1.0-1.7) L Lipase 45 U/L (73-393) L Acetone Level Mod pos (NEG) O2 Saturation 96 % (92-99) Arterial Blood pH 7.20 (7.35-7.45) *L Arterial Blood pCO2 at Patient Temp 19 mmHg (35-46) *L Arterial Blood pO2 at Patient Temp 99 mmHg (65-108) Arterial Blood HCO3 7 mmol/L (21-28) L Arterial Blood Base Excess -19 mmol/L (-3-3) L Laboratory Tests 06/10/18 09:30 Laboratory Tests 06/10/18 09:40 EKG EKG Interpreted by me. EKG at 10 00 showed sinus tachycardia at rate of 107, normal [place] and QT intervals, T-wave abnormality in inferior leads, poor R-wave progress in anteroseptal leads, no acute ST-T wave abnormalities. Radiology/Procedures Radiology/Procedures [facility] [address] [place] [address] IMAGING REPORT Signed PATIENT: BRIGID ARMANDO ACCOUNT: [id number] : 1950 LOCATION: ER AGE: 67 SEX: M EXAM STATUS: REG ER ORD. PHYSICIAN: SYED CHENG MD REASON: hypotension and nausea and vomiting PROCEDURE: PORTABLE CHEST 1V PORTABLE CHEST 1V Clinical Indication: HYPOTENSION, NAUSEA, VOMITING Comparison: AP chest 11/09/2017. Findings: There is left chest single lead ICD. There is coronary artery disease. Atherosclerotic thoracic aorta. Cardiac size is normal. Lungs are clear. There is no pneumothorax. No pleural effusion is appreciated. No acute bone abnormality. IMPRESSION: No acute cardiopulmonary process. Electronically signed by: Ever Millan MD (06/10/2018 10:30 AM) [id number] DICTATED and SIGNED BY: EVER MILLAN MD DATE: 06/10/18 1030 Course & Med Decision Making Course & Med Decision Making Pertinent Labs and Imaging studies reviewed. (See chart for details) Evaluation of patient in ER showed 67-year-old male patient with history of type 1 diabetes and frequent episodes of DKA resident of [facility] with dementia brought in because of nausea and vomiting for 10 hours and not feeling good for one week. Patient had blood sugar read as high with 1006 blood sugar with lab. Patient treated with IV fluid and Insulin bolus and drip of insulin with improvement of hypotension and tachycardia.lactic acid was elevated at 5.6 because of diabetic ketoacidosis. Patient requiring admission for further evaluation and treatment. Discussed with Dr. Bustamante who is in agreement with admission. Discussed findings and plan with patient and family, who acknowledge understanding and agreement. Dragon Disclaimer Dragon Disclaimer This electronic medical record was generated, in whole or in part, using a voice recognition dictation system. Departure Departure Impression: Primary Impression: DKA (diabetic ketoacidosis) Additional Impressions: Dehydration Renal insufficiency Hyperkalemia Lactic acidemia CHF (congestive heart failure) Disposition: ADMITTED INPATIENT (@1051) Admitting Physician: Tonie Bustamante (accepted admission at 1050) Condition: GUARDED Referrals: LOPEZ MCKAY MD (PCP) Critical Care Time Critical care time was 80 minutes exclusive of procedures. Problem Qualifiers Primary Impression: DKA (diabetic ketoacidosis) Diabetes mellitus type: type 1 Diabetes mellitus complication detail: without coma Qualified Codes: E10.10 - Type 1 diabetes mellitus with ketoacidosis without coma SYED CHENG MD Jun 10, 2018 10:32
[2018-06-10 10:36] LABS: POTASSIUM 5.9 mmol/L (3.5-5.1)
[2018-06-10] MEDS: IV NORMAL SALINE 1000ML BAG 1,000 ML IV SCH ×4 (10:54→21:16)
[2018-06-10 11:07] LABS: BILIRUBIN,URINE NEGATIVE (NEG); CLARITY,URINE CLEAR; COLOR,URINE YELLOW; NITRITE,URINE NEGATIVE (NEG); PROTEIN,URINE NEGATIVE (NEG-TRACE); UROBILINOGEN,URINE 0.2 mg/dL (0.2 mg/dL)
[2018-06-10 11:18] LABS: SQUAMOUS EPITHELIAL CELL,UR FEW /LPF
[2018-06-10 11:19] LABS: BACTERIA,URINE 0 /HPF (0-FEW); HYALINE CASTS, URINE FEW /HPF; RBC,URINE OCC /HPF (0-2)
--- NOTE | 2018-06-10 11:34 | EKG ---
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
[2018-06-10] MEDS ORDERED: ZOLPIDEM 5 MG TABLET. PO PRN (12:30)
[2018-06-10] MEDS ORDERED: NITROGLYCERIN SUBLINGUAL 0.4 MG BOTTLE OF 25. SL PRN (12:30)
--- NOTE | 2018-06-10 12:53 | PDOC1 ---
History and Physical Date of Admission Date of Admission DATE: 06/10/18 TIME: 12:49 Identification/Chief Complaint Chief Complaint Week at SNU, not eating maybe for 7 days Source Source: Caregiver, Chart review, Patient History of Present Illness History of Present Illness Not the best historian, 67-year-old male, SNU resident. Full code per chart. Apparently weak and confused maybe 7 days at SNU. Blood pressure 80 systolic upon arrival. Blood sugar over 1000 on arrival with elevated anion gap 34 with a bicarbonate of 7 but pH 7.2. Lactate 5.8. Chest x-ray normal. Looking at old chart, normally on 44 units daily at bedtime with 5 units mealtime. A little bit hypotensive but responding to IV fluid. Admitted to ICU under DKA protocol. NO Family at bedside Past Medical History Cardiovascular: CAD, CHF, HTN, OH, Hyperlipidemia, Other Pulmonary: COPD, Pneumonia CENTRAL NERVOUS SYSTEM: CVA GI: GERD Heme/Onc: No pertinent hx Hepatobiliary: No pertinent hx Psych: Depression Musculoskeletal: Osteoarthritis Rheumatologic: No pertinent hx Infectious disease: No pertinent hx Renal/: No pertinent hx Endocrine: Diabetes Past Surgical History Past Surgical History: Pacemaker, Other Family History Family History: Coronary Artery Disease Social History Smoke: No ALCOHOL: none Drugs: None Current Medications Current Medications Current Medications Insulin Human Regular (HumuLIN R VIAL) 10 unit 1X ONCE IV Last administered on 06/10/18at 10:11; Start 06/10/18 at 09:45; Stop 06/10/18 at 09:46; Status DC Insulin Human Regular 150 unit/ Sodium Chloride 151.5 ml @ 0 mls/hr CONT PRN IV SEE I/O RECORD; Start 06/10/18 at 09:45 Insulin Human Regular 150 ml @ 0 mls/hr 1X ONCE IV Last administered on 06/10/18at 10:58; Start 06/10/18 at 09:45; Stop 06/10/18 at 09:46; Status DC Sodium Chloride 1,000 ml @ 1,000 mls/hr 1X ONCE IV Last administered on 06/10/18at 09:58; Start 06/10/18 at 09:45; Stop 06/10/18 at 10:44; Status DC Sodium Chloride 1,000 ml @ 1,000 mls/hr 1X ONCE IV Last administered on 06/10/18at 09:58; Start 06/10/18 at 09:45; Stop 06/10/18 at 10:44; Status DC Sodium Chloride 1,000 ml @ 1,000 mls/hr 1X ONCE IV Last administered on 06/10/18at 10:54; Start 06/10/18 at 10:15; Stop 06/10/18 at 11:14; Status DC Sodium Chloride 1,000 ml @ 250 mls/hr Q4H IV ; Start 06/10/18 at 10:54; Stop at 10:53 Aspirin (Children'S Aspirin) 81 mg DAILY PO ; Start 06/11/18 at 09:00 Atorvastatin Calcium (Lipitor) 40 mg HS PO ; Start 06/10/18 at 21:00 Bupropion HCl (Wellbutrin Xl) 150 mg DAILY PO ; Start 06/11/18 at 09:00 Carvedilol (Coreg) 3.125 mg BIDWMEALS PO ; Start 06/10/18 at 17:00; Stop 06/10/18 at 17:00; Status DC Clopidogrel Bisulfate (Plavix) 75 mg DAILY PO ; Start 06/11/18 at 09:00 Ferrous Sulfate (Feosol) 325 mg DAILY08 PO ; Start 06/11/18 at 08:00 Furosemide (Lasix) 40 mg DAILY PO ; Start 06/11/18 at 09:00; Stop 06/11/18 at 09:00; Status DC Gabapentin (Neurontin) 100 mg QHS PO ; Start 06/10/18 at 21:00 Acetaminophen/ Hydrocodone Bitart (Lortab 5/325) 1 tab PRN QID PRN PO MODERATE PAIN; Start 06/10/18 at 12:30 Nitroglycerin (Nitrostat) 0.4 mg PRN Q5MIN PRN SL CHEST PAIN; Start 06/10/18 at 12:30 Potassium Chloride (Klor-Con) 10 meq DAILY PO ; Start 06/11/18 at 09:00; Stop 06/11/18 at 09:00; Status DC Zolpidem Tartrate (Ambien) 5 mg PRN QHS PRN PO INSOMNIA; Start 06/10/18 at 12:30 Ergocalciferol (Vitamin D2) 50,000 unit Sa PO ; Start 06/13/18 at 09:00 Donepezil HCl (Aricept) 10 mg DAILY PO ; Start 06/11/18 at 09:00 Duloxetine HCl (Cymbalta) 90 mg DAILY PO ; Start 06/11/18 at 09:00 Levothyroxine Sodium (Synthroid) 25 mcg DAILY06 PO ; Start 06/11/18 at 06:00 Non-Formulary Medication (Lisinopril ) 1.25 mg DAILY PO ; Start 06/11/18 at 09:00; Stop 06/11/18 at 09:00; Status DC Non-Formulary Medication (Memantine HCl/ Donepezil HCl (Namzaric 28 mg-10 mg Capsule)) 1 each DAILY PO ; Start 06/11/18 at 09:00; Status UNV Active Scripts Active [place] 5-325 Tablet (Acetaminophen/Hydrocodone Bitart) 1 Each Tablet 1-2 Tab PO Q4-6HRS PRN Reported Ambien (Zolpidem Tartrate) 5 Mg Tablet 5 Mg PO HS PRN Humalog (Insulin Lispro) 100 Unit/1 Ml Insuln.pen 5 Unit SQ TIDWMEALS Aricept (Donepezil Hcl) 10 Mg Tablet 10 Mg PO DAILY Tresiba Flextouch U-100 (Insulin Degludec) 100 Unit/1 Ml Insuln.pen 44 Unit SQ HS Ferrous Sulfate 325 Mg Tablet 1 Tab PO DAILY Namzaric 28 mg-10 mg Capsule (Memantine HCl/Donepezil HCl) 1 Each Cap.spr.24 1 Each PO DAILY Bupropion Xl (Bupropion Hcl) 150 Mg Tab.er.24h 1 Tab PO DAILY Levothyroxine Sodium 25 Mcg Tablet 1 Tab PO DAILY Gabapentin (Gabapentin) 100 Mg Capsule 100 Mg PO QHS Vitamin D3 (Cholecalciferol (Vitamin D3)) 50,000 Unit Capsule 50,000 Unit PO QSA Atorvastatin Calcium 40 Mg Tablet 40 Mg PO HS Lisinopril 2.5 Mg Tablet 1.25 Mg PO DAILY Coreg (Carvedilol) 3.125 Mg Tablet 3.125 Mg PO BIDWMEALS Cymbalta (Duloxetine Hcl) 60 Mg Capsule.dr 90 Mg PO DAILY Potassium Chloride 10 Meq Capsule.er 10 Meq PO DAILY Nitrostat (Nitroglycerin) 0.4 Mg Tab.subl 0.4 Mg SL PRN Q5MIN PRN Furosemide 40 Mg Tablet 1 Tab PO DAILY Clopidogrel (Clopidogrel Bisulfate) 75 Mg Tablet 1 Tab PO DAILY Aspirin 81 Mg Tab.chew 1 Tab PO DAILY Allergies Allergies: Coded Allergies: No Known Drug Allergies (Unverified , 11/22/16) ROS Review of System limited some element of dementia Physical Exam General: No acute distress, Other (sleepy, weak looking) HEENT: Atraumatic, PERRLA Lungs: Clear to auscultation, Normal air movement Heart: S1S2, RRR, no thrills, no rubs, no gallops, no murmurs, other (sinus tachycardia 90s) Cardiovascular: S1, S2 Breasts: Normal, Rt breast nml w/o mass, Lt breast nml w/o mass, Nipples normal Abdomen: Normal bowel sounds, Soft, No tenderness, No hepatosplenomegaly, No masses Rectal Exam: not examined PELVIC: Nml ext genitalia Extremities: No clubbing, No cyanosis, No edema, Normal pulses, No tenderness/swelling Skin: No rashes, No breakdown, No significant lesion Neuro: Normal gait, Normal speech, Strength at 5/5 X4 ext, Normal tone, Sensation intact, Cranial nerves 3-12 NL, Reflexes 2+ Psych/Mental Status: Mental status NL, Mood NL Vitals Vitals Vital Signs Date Time Temp Pulse Resp B/P (MAP) Pulse Ox O2 Delivery O2 Flow Rate FiO2 06/10/18 11:09 96 104/44 (64) 100 Room Air 06/10/18 09:26 97.6 19 97.6 Labs Labs Laboratory Tests Test 06/10/18 09:30 06/10/18 09:40 06/10/18 09:50 06/10/18 10:35 White Blood Count 11.3 x10^3/uL (4.0-11.0) Red Blood Count 4.51 x10^6/uL (4.30-5.70) Hemoglobin 11.8 g/dL (13.0-17.5) Hematocrit 40.3 % (39.0-53.0) Mean Corpuscular Volume 89 fL (79-100) Mean Corpuscular Hemoglobin 26 pg (25-35) Mean Corpuscular Hemoglobin Concent 29 g/dL (31-37) Red Cell Distribution Width 17.6 % (11.5-14.5) Platelet Count 186 x10^3/uL (140-400) Neutrophils (%) (Auto) 89 % (31-73) Lymphocytes (%) (Auto) 5 % (24-48) Monocytes (%) (Auto) 5 % (0-9) Eosinophils (%) (Auto) 0 % (0-3) Basophils (%) (Auto) 0 % (0-3) Neutrophils # (Auto) 10.1 x10^3uL (1.8-7.7) Lymphocytes # (Auto) 0.6 x10^3/uL (1.0-4.8) Monocytes # (Auto) 0.6 x10^3/uL (0.0-1.1) Eosinophils # (Auto) 0.0 x10^3/uL (0.0-0.7) Basophils # (Auto) 0.0 x10^3/uL (0.0-0.2) Sodium Level 127 mmol/L (136-145) Potassium Level 5.9 mmol/L (3.5-5.1) Chloride Level 86 mmol/L (98-107) Carbon Dioxide Level 7 mmol/L (21-32) Anion Gap 34 (6-14) Blood Urea Nitrogen 41 mg/dL (8-26) Creatinine 2.3 mg/dL (0.7-1.3) Estimated GFR (Cockcroft-Gault) 28.6 BUN/Creatinine Ratio 18 (6-20) Glucose Level 1006 mg/dL (70-99) Lactic Acid Level 5.8 mmol/L (0.4-2.0) Calcium Level 9.4 mg/dL (8.5-10.1) Phosphorus Level 7.6 mg/dL (2.6-4.7) Magnesium Level 2.1 mg/dL (1.8-2.4) Total Bilirubin 0.8 mg/dL (0.2-1.0) Aspartate Amino Transf (AST/SGOT) 14 U/L (15-37) Alanine Aminotransferase (ALT/SGPT) 15 U/L (16-63) Alkaline Phosphatase 162 U/L (46-116) Creatine Kinase 42 U/L (39-308) Creatine Kinase MB (Mass) 2.5 ng/mL (0.0-3.6) Creatine Kinase MB Relative Index % (0-4) Troponin I Quantitative 0.022 ng/mL (0.000-0.055) JD-[id number]-Type Natriuretic Peptide 16720 pg/mL (0-124) Total Protein 6.9 g/dL (6.4-8.2) Albumin 3.3 g/dL (3.4-5.0) Albumin/Globulin Ratio 0.9 (1.0-1.7) Lipase 45 U/L (73-393) Acetone Level Mod pos (NEG) O2 Saturation 96 % (92-99) Arterial Blood pH 7.20 (7.35-7.45) Arterial Blood pCO2 at Patient Temp 19 mmHg (35-46) Arterial Blood pO2 at Patient Temp 99 mmHg (65-108) Arterial Blood HCO3 7 mmol/L (21-28) Arterial Blood Base Excess -19 mmol/L (-3-3) Urine Collection Type Unknown Urine Color Yellow Urine Clarity Clear Urine pH 5.0 Urine Specific [place] 1.025 Urine Protein Negative mg/dL (NEG-TRACE) Urine Glucose (UA) >=1000 mg/dL (NEG) Urine Ketones (Stick) 40 mg/dL (NEG) Urine Blood Trace (NEG) Urine Nitrite Negative (NEG) Urine Bilirubin Negative (NEG) Urine Urobilinogen Dipstick 0.2 mg/dL (0.2 mg/dL) Urine Leukocyte Esterase Negative (NEG) Urine RBC Occ /HPF (0-2) Urine WBC 1-4 /HPF (0-4) Urine Squamous Epithelial Cells Few /LPF Urine Bacteria 0 /HPF (0-FEW) Urine Hyaline Casts Few /HPF Urine Mucus Slight /LPF Laboratory Tests Test 06/10/18 09:30 06/10/18 09:40 06/10/18 09:50 06/10/18 10:35 White Blood Count 11.3 x10^3/uL (4.0-11.0) Red Blood Count 4.51 x10^6/uL (4.30-5.70) Hemoglobin 11.8 g/dL (13.0-17.5) Hematocrit 40.3 % (39.0-53.0) Mean Corpuscular Volume 89 fL (79-100) Mean Corpuscular Hemoglobin 26 pg (25-35) Mean Corpuscular Hemoglobin Concent 29 g/dL (31-37) Red Cell Distribution Width 17.6 % (11.5-14.5) Platelet Count 186 x10^3/uL (140-400) Neutrophils (%) (Auto) 89 % (31-73) Lymphocytes (%) (Auto) 5 % (24-48) Monocytes (%) (Auto) 5 % (0-9) Eosinophils (%) (Auto) 0 % (0-3) Basophils (%) (Auto) 0 % (0-3) Neutrophils # (Auto) 10.1 x10^3uL (1.8-7.7) Lymphocytes # (Auto) 0.6 x10^3/uL (1.0-4.8) Monocytes # (Auto) 0.6 x10^3/uL (0.0-1.1) Eosinophils # (Auto) 0.0 x10^3/uL (0.0-0.7) Basophils # (Auto) 0.0 x10^3/uL (0.0-0.2) Sodium Level 127 mmol/L (136-145) Potassium Level 5.9 mmol/L (3.5-5.1) Chloride Level 86 mmol/L (98-107) Carbon Dioxide Level 7 mmol/L (21-32) Anion Gap 34 (6-14) Blood Urea Nitrogen 41 mg/dL (8-26) Creatinine 2.3 mg/dL (0.7-1.3) Estimated GFR (Cockcroft-Gault) 28.6 BUN/Creatinine Ratio 18 (6-20) Glucose Level 1006 mg/dL (70-99) Lactic Acid Level 5.8 mmol/L (0.4-2.0) Calcium Level 9.4 mg/dL (8.5-10.1) Phosphorus Level 7.6 mg/dL (2.6-4.7) Magnesium Level 2.1 mg/dL (1.8-2.4) Total Bilirubin 0.8 mg/dL (0.2-1.0) Aspartate Amino Transf (AST/SGOT) 14 U/L (15-37) Alanine Aminotransferase (ALT/SGPT) 15 U/L (16-63) Alkaline Phosphatase 162 U/L (46-116) Creatine Kinase 42 U/L (39-308) Creatine Kinase MB (Mass) 2.5 ng/mL (0.0-3.6) Creatine Kinase MB Relative Index % (0-4) Troponin I Quantitative 0.022 ng/mL (0.000-0.055) PP-Lrf-[id number]-Type Natriuretic Peptide 20581 pg/mL (0-124) Total Protein 6.9 g/dL (6.4-8.2) Albumin 3.3 g/dL (3.4-5.0) Albumin/Globulin Ratio 0.9 (1.0-1.7) Lipase 45 U/L (73-393) Acetone Level Mod pos (NEG) O2 Saturation 96 % (92-99) Arterial Blood pH 7.20 (7.35-7.45) Arterial Blood pCO2 at Patient Temp 19 mmHg (35-46) Arterial Blood pO2 at Patient Temp 99 mmHg (65-108) Arterial Blood HCO3 7 mmol/L (21-28) Arterial Blood Base Excess -19 mmol/L (-3-3) Urine Collection Type Unknown Urine Color Yellow Urine Clarity Clear Urine pH 5.0 Urine Specific [place] 1.025 Urine Protein Negative mg/dL (NEG-TRACE) Urine Glucose (UA) >=1000 mg/dL (NEG) Urine Ketones (Stick) 40 mg/dL (NEG) Urine Blood Trace (NEG) Urine Nitrite Negative (NEG) Urine Bilirubin Negative (NEG) Urine Urobilinogen Dipstick 0.2 mg/dL (0.2 mg/dL) Urine Leukocyte Esterase Negative (NEG) Urine RBC Occ /HPF (0-2) Urine WBC 1-4 /HPF (0-4) Urine Squamous Epithelial Cells Few /LPF Urine Bacteria 0 /HPF (0-FEW) Urine Hyaline Casts Few /HPF Urine Mucus Slight /LPF VTE Prophylaxis Ordered VTE Prophylaxis Devices: Yes VTE Pharmacological Prophylaxi: Yes Assessment/Plan Assessment/Plan DKA with encephalopathy MEt encep multifactorial - sec to DKA with some element of dementia SNU resident Hypotension responsive to fluids Elevated lactated sec to DKA SIRS secondary to DKA, not infectious in origin Sinus tachycardia Increase in anion gap acidosis with low bicarbonate-bicarbonate 7 Pseudohyponatremia 127 Hyperkalemia 5.9 Hyperchloremia Acidosis metabolic PLAN: DKA protocol, ICU care Recheck lactate and labs BMP every 4 until gap closes I held off BP meds namely lisinopril, BB, Lasix because of hypotension and we are actually hydrating aggressively On donepezil Aricept, Cymbalta, gabapentin 100 by mouth daily at bedtime-hold if too sleepy-nursing discretion Seen in ICU DEMETRIUS JOAQUIN MD Jun 10, 2018 12:53
[2018-06-10 13:10] LABS: % BANDS 5 % (0-9); % LYMPHS 2 % (24-48); % MONOS 5 % (0-10); % SEGS 88 % (35-66); PLT ESTIMATE ADEQUATE (ADEQUATE); POIKILOCYTOSIS PRESENT
[2018-06-10 13:15] LABS: CALCIUM 8.4 mg/dL (8.5-10.1); CREATININE 1.9 mg/dL (0.7-1.3); GFR 35.6; MAGNESIUM 1.8 mg/dL (1.8-2.4); PHOSPHORUS 3.5 mg/dL (2.6-4.7); POTASSIUM 4.4 mmol/L (3.5-5.1)
--- NOTE | 2018-06-10 14:00 | NUR ---
wound care patient seen per wound care consult. see wound assessment. patient seen with Dr. Sarabia. wound cleaned, measured, pictured and a consent was obtained for a bedside debridement to the left BKA amputation site. see Dr. Sarabia note for assessment and debridement. the wound was cleaned, measured and pictured after debridement and recommendations of jennifer (collagen) with Xeroform gauze, abd pad, Kerlix and tape, change every 3-4 days. patient assessed from head to toe an no other wounds noted at this time. patient has a pink coccyx, still blanchable applied Calazime cream at this time. recommendations patient turn every 2 hours, patient turned to the left side at this time. notified RN about the POC and wound care will continue to f/u for changes.
--- NOTE | 2018-06-10 14:23 | NUR ---
Wound care team at bedside to measure and photograph patient's Left BKA site. Potential debridement needed, Wound RNs at bedside to obtain consent with MD. Addendum: 06/10/18 at 1424 by ADRIA BURRIS RN MD notified that no cultures have been ordered on wound site, patient has lactic of 4.7. Addendum: 06/10/18 at 1500 by ADRIA BURRIS RN Wound care RNs dressed L BKA site with collagen, xerofoam gauze, an ABD pad, and Kerlex. Wound debridement done at bedside by .
[2018-06-10 16:10] LABS: CALCIUM 8.5 mg/dL (8.5-10.1); CREATININE 1.6 mg/dL (0.7-1.3); GFR 43.5; MAGNESIUM 1.8 mg/dL (1.8-2.4); POTASSIUM 3.8 mmol/L (3.5-5.1)
[2018-06-10] MEDS ORDERED: CARVEDILOL 3.125 MG TABLET. PO SCH (17:00)
--- NOTE | 2018-06-10 17:54 | PDOC2 ---
Chief Complaint: Chief Complaint: Weakness, confusion Problems: (1) DISRUPTION OF EXTERNAL OPERATION (SURGICAL) WOUND, NEC, INIT Vital Signs: Vital Signs: Vital Signs Date Time Temp Pulse Resp B/P (MAP) Pulse Ox O2 Delivery O2 Flow Rate FiO2 06/10/18 09:26 97.6 116 19 80/52 (61) 100 Room Air 97.6 Vital Signs Date Time Temp Pulse Resp B/P (MAP) Pulse Ox O2 Delivery O2 Flow Rate FiO2 06/10/18 16:00 96 20 102/41 (61) 96 Room Air 06/10/18 09:26 97.6 97.6 Allergies: Allergies: Allergies Coded Allergies Type Severity Reaction Last Updated Verified No Known Drug Allergies 11/22/16 No Medications: Home Meds Active Scripts Hydrocodone/[place] 5-325 ([place] 5-325 TABLET) 1 Each Tablet, 1-2 TAB PO Q4-6HRS PRN for PAIN, #20 TAB Prov:MUTUNGA,SHYAM OTOLARYNGOLOGY TEACHER 12/04/17 Reported Medications Zolpidem Tartrate (AMBIEN) 5 Mg Tablet, 5 MG PO HS PRN for INSOMNIA, TAB 0 R efills 11/12/17 Insulin Lispro (HUMALOG) 100 Unit/1 Ml Insuln.pen, 5 UNIT SQ TIDWMEALS, SYR 11/12/17 Donepezil Hcl (ARICEPT) 10 Mg Tablet, 10 MG PO DAILY, TAB 11/12/17 Insulin Degludec (Tresiba Flextouch U-100) 100 Unit/1 Ml Insuln.pen, 44 UNIT SQ HS, EACH 11/09/17 Ferrous Sulfate (FERROUS SULFATE) 325 Mg Tablet, 1 TAB PO DAILY, #30 TAB 3 Refills 08/16/17 Memantine HCl/Donepezil HCl (Namzaric 28 mg-10 mg Capsule) 1 Each Cap.spr.24, 1 EACH PO DAILY, CAP 08/16/17 Bupropion Hcl (BUPROPION XL) 150 Mg Tab.er.24h, 1 TAB PO DAILY, #30 TAB 08/16/17 Levothyroxine Sodium (LEVOTHYROXINE SODIUM) 25 Mcg Tablet, 1 TAB PO DAILY, #30 TAB 5 Refills 08/16/17 Gabapentin (GABAPENTIN ) 100 Mg Capsule, 100 MG PO QHS, CAP 08/16/17 Cholecalciferol (Vitamin D3) (VITAMIN D3) 50,000 Unit Capsule, 81824 UNIT PO QSA, CAP 08/16/17 Atorvastatin Calcium (ATORVASTATIN CALCIUM) 40 Mg Tablet, 40 MG PO HS for FOR CHOLESTEROL, #30 TAB 0 Refills 02/24/17 Lisinopril (LISINOPRIL) 2.5 Mg Tablet, 1.25 MG PO DAILY for FOR HYPERTENSION, #30 TAB 0 Refills 02/24/17 Carvedilol (COREG ) 3.125 Mg Tablet, 3.125 MG PO BIDWMEALS, TAB 02/24/17 Duloxetine Hcl (CYMBALTA) 60 Mg Capsule.dr, 90 MG PO DAILY, CAP 02/24/17 Potassium Chloride (POTASSIUM CHLORIDE) 10 Meq Capsule.er, 10 MEQ PO DAILY, TAB.SR 02/24/17 Nitroglycerin (NITROSTAT) 0.4 Mg Tab.subl, 0.4 MG SL PRN Q5MIN PRN for CHEST PAIN, BOTTLE 09/17/14 Furosemide (FUROSEMIDE) 40 Mg Tablet, 1 TAB PO DAILY, #30 TAB 5 Refills 09/17/14 Clopidogrel Bisulfate (CLOPIDOGREL) 75 Mg Tablet, 1 TAB PO DAILY, #90 TAB 1 Refill 09/17/14 Aspirin (ASPIRIN) 81 Mg Tab.chew, 1 TAB PO DAILY, #30 TAB 3 Refills 04/02/14 Date of Onset Mr. Valles is a 67 year old diabetic male admitted for DKA and confusion. He had a left foot BKA at [facility] this year. Wound care was consult limited due to nonhealing surgical incision. More specific history is not available due to poor historian. Surgical Date 2018 [facility] Type 2 diabetes with multiple admissions for DKA. Physical Exam - Wound #1 Wound Exam Location of Modifier: Left Body Site: Leg Drainage Amount: Minimal Drainage Description: [place] Odor: None/Absent Surrounding Tissue Appearance: pink Surgical Debridement #1 Wound Location: Left stump Tissue Removed: Non-Viable, Slough Method of Debridement: Scissors, Curette Depth of Debridement: Muscle Hemostasis Achieved: No Bleeding Pain Level: Pain ___/10 No flinching or grimacing A/P Recent BKA. Most of the surgical wound is closed and well approximated. There was a section that has not closed and had soft eschar and slough which I debrided. After discharge he can follow up in our wound care center for the wound care center of his choice. AYAN GOLDMAN MD Jun 10, 2018 17:54
[2018-06-10 19:22] LABS: CALCIUM 8.4 mg/dL (8.5-10.1); CREATININE 1.4 mg/dL (0.7-1.3); GFR 50.7; MAGNESIUM 1.6 mg/dL (1.8-2.4); PHOSPHORUS 1.8 mg/dL (2.6-4.7); POTASSIUM 3.6 mmol/L (3.5-5.1)
[2018-06-10] MEDS ORDERED: IV DEXTROSE 5% - 0.9 % NACL 1,000 ML IV SCH (19:30)
[2018-06-10] MEDS: ATORVASTATIN CALCIUM 40 MG TABLET. PO SCH (21:13)
[2018-06-10] MEDS: GABAPENTIN 100 MG CAPSULE. PO SCH (21:14)
[2018-06-10] MEDS: MEMANTINE 10 MG TABLET. PO SCH (21:14)
[2018-06-10] MEDS: INSULIN GLARGINE 300 UNITS/3 ML INSULN.PEN. SQ SCH (21:37)
[2018-06-10] MEDS: HYDROcodone/APAP 5/325MG 1 TAB TABLET PO PRN (22:04)
[2018-06-11] VITALS (14 sets, daily range): BP systolic 86–155; BP diastolic 34–83
[2018-06-11 04:33] LABS: BASO % 0 % (0-3); EOS # 0.2 x10^3/uL (0.0-0.7); EOS % 2 % (0-3); HEMATOCRIT 31.6 % (39.0-53.0); HEMOGLOBIN 10.1 g/dL (13.0-17.5); LYMPH # 2.4 x10^3/uL (1.0-4.8); LYMPH % 23 % (24-48); MEAN CORPUSCULAR HEMOGLOBIN 26 pg (25-35); MEAN CORPUSCULAR HGB CONC 32 g/dL (31-37); MEAN CORPUSCULAR VOLUME 83 fL (79-100); MONO # 0.7 x10^3/uL (0.0-1.1); MONO % 7 % (0-9); NEUT # 7.3 x10^3uL (1.8-7.7); NEUT % 68 % (31-73); PLATELET COUNT 164 x10^3/uL (140-400); RED BLOOD COUNT 3.82 x10^6/uL (4.30-5.70); RED CELL DISTRIBUTION WIDTH 16.6 % (11.5-14.5); WHITE BLOOD COUNT 10.6 x10^3/uL (4.0-11.0)
[2018-06-11 04:45] LABS: CALCIUM 8.3 mg/dL (8.5-10.1); CREATININE 1.1 mg/dL (0.7-1.3); MAGNESIUM 1.7 mg/dL (1.8-2.4); POTASSIUM 3.7 mmol/L (3.5-5.1)
[2018-06-11] MEDS: LEVOTHYROXINE 25 MCG TABLET. PO SCH (05:52)
[2018-06-11] MEDS: INSULIN LISPRO 300 UNITS/3 ML INSULN.PEN. SQ SCH ×3 (08:00→17:26)
[2018-06-11] MEDS: MEMANTINE 10 MG TABLET. PO SCH ×2 (08:35→21:20)
[2018-06-11] MEDS: ASPIRIN CHEWABLE 81 MG TABLET. PO SCH (08:35)
[2018-06-11] MEDS: DULoxetine HCL 30 MG CAPSULE.DR PO SCH (08:35)
[2018-06-11] MEDS: CLOPIDOGREL BISULFATE 75 MG TABLET PO SCH (08:35)
[2018-06-11] MEDS: DONEPEZIL HCL 10 MG TABLET. PO SCH (08:35)
[2018-06-11] MEDS: buPROPion XL 150 MG TAB.ER.24H. PO SCH (08:36)
[2018-06-11] MEDS: FERROUS SULFATE 325 MG TABLET. PO SCH (08:36)
[2018-06-11] MEDS ORDERED: POTASSIUM CHLORIDE 10 MEQ TABLET.ER. PO SCH (09:00)
[2018-06-11] MEDS ORDERED: NON FORMULARY ITEM (Memantine HCl/Donepezil HCl (Namzaric 28 mg-10 mg Capsule) 1 EACH) PO SCH (09:00)
[2018-06-11] MEDS ORDERED: LISINOPRIL 1.25 MG PO SCH (09:00)
[2018-06-11] MEDS ORDERED: FUROSEMIDE 40 MG TABLET. PO SCH (09:00)
--- NOTE | 2018-06-11 09:08 | NUR ---
IP: Pt is mrsa screen + requiring contact precautions.
--- NOTE | 2018-06-11 09:20 | PDOC ---
PROGRESS NOTES Chief Complaint Chief Complaint DKA with encephalopathy MEt encep multifactorial - sec to DKA with some element of dementia SNU resident Hypotension responsive to fluids Elevated lactated sec to DKA SIRS secondary to DKA, not infectious in origin Sinus tachycardia, resolved Increase in anion gap acidosis with low bicarbonate-bicarbonate 7 Pseudohyponatremia 127, resolved Hyperkalemia 5.9, resolved Hyperchloremia, resolved Acidosis metabolic, resolved History of Present Illness History of Present Illness GAp Closed All the elyte abnormalities resolved Patient looks and feels better Sitting Up eating breakfast On 44 units daily at bedtime and 5 units [facility] a day [facility] So far we only have 20 units daily at bedtime ordered by overnight [id number] sugars in the 150s Plan: 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 daily at 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-if blood sugars are running high thru the day, then might need to resume his home dose which is 44 units daily at bedtime Check hemoglobin [id number] A1c was 9.2 in 2018 Back to SNU on discharge which is probably tomorrow if blood sugars continue to maintain cont current IVF normal saline 75 mL for now-has only gotten one bag Vitals Vitals Vital Signs Date Time Temp Pulse Resp B/P (MAP) Pulse Ox O2 Delivery O2 Flow Rate FiO2 06/11/18 08:00 97.6 78 10 121/46 (71) 93 Room Air 97.6 Physical Exam General: Alert, Oriented X3, Cooperative, No acute distress, Other (sleepy, weak looking) Heart: Regular rate, Normal S1, Normal S2 Lungs: Clear, Crackles Abdomen: Normal bowel sounds, Soft, No tenderness, No hepatosplenomegaly, No masses Extremities: No clubbing, No cyanosis, No edema, Normal pulses, No tenderness/swelling Skin: No rashes, No breakdown, No significant lesion Labs LABS Laboratory Tests Test 06/10/18 09:30 06/10/18 09:40 06/10/18 09:50 06/10/18 10:35 White Blood Count 11.3 x10^3/uL (4.0-11.0) Red Blood Count 4.51 x10^6/uL (4.30-5.70) Hemoglobin 11.8 g/dL (13.0-17.5) Hematocrit 40.3 % (39.0-53.0) Mean Corpuscular Volume 89 fL (79-100) Mean Corpuscular Hemoglobin 26 pg (25-35) Mean Corpuscular Hemoglobin Concent 29 g/dL (31-37) Red Cell Distribution Width 17.6 % (11.5-14.5) Platelet Count 186 x10^3/uL (140-400) Neutrophils (%) (Auto) 89 % (31-73) Lymphocytes (%) (Auto) 5 % (24-48) Monocytes (%) (Auto) 5 % (0-9) Eosinophils (%) (Auto) 0 % (0-3) Basophils (%) (Auto) 0 % (0-3) Neutrophils # (Auto) 10.1 x10^3uL (1.8-7.7) Lymphocytes # (Auto) 0.6 x10^3/uL (1.0-4.8) Monocytes # (Auto) 0.6 x10^3/uL (0.0-1.1) Eosinophils # (Auto) 0.0 x10^3/uL (0.0-0.7) Basophils # (Auto) 0.0 x10^3/uL (0.0-0.2) Segmented Neutrophils % 88 % (35-66) Band Neutrophils % 5 % (0-9) Lymphocytes % 2 % (24-48) Monocytes % 5 % (0-10) Platelet Estimate Adequate (ADEQUATE) Poikilocytosis Present Sodium Level 127 mmol/L (136-145) Potassium Level 5.9 mmol/L (3.5-5.1) Chloride Level 86 mmol/L (98-107) Carbon Dioxide Level 7 mmol/L (21-32) Anion Gap 34 (6-14) Blood Urea Nitrogen 41 mg/dL (8-26) Creatinine 2.3 mg/dL (0.7-1.3) Estimated GFR (Cockcroft-Gault) 28.6 BUN/Creatinine Ratio 18 (6-20) Glucose Level 1006 mg/dL (70-99) Lactic Acid Level 5.8 mmol/L (0.4-2.0) Calcium Level 9.4 mg/dL (8.5-10.1) Phosphorus Level 7.6 mg/dL (2.6-4.7) Magnesium Level 2.1 mg/dL (1.8-2.4) Total Bilirubin 0.8 mg/dL (0.2-1.0) Aspartate Amino Transf (AST/SGOT) 14 U/L (15-37) Alanine Aminotransferase (ALT/SGPT) 15 U/L (16-63) Alkaline Phosphatase 162 U/L (46-116) Creatine Kinase 42 U/L (39-308) Creatine Kinase MB (Mass) 2.5 ng/mL (0.0-3.6) Creatine Kinase MB Relative Index % (0-4) Troponin I Quantitative 0.022 ng/mL (0.000-0.055) LP-Lav-M-Type Natriuretic Peptide 88573 pg/mL (0-124) Total Protein 6.9 g/dL (6.4-8.2) Albumin 3.3 g/dL (3.4-5.0) Albumin/Globulin Ratio 0.9 (1.0-1.7) Lipase 45 U/L (73-393) Acetone Level Mod pos (NEG) O2 Saturation 96 % (92-99) Arterial Blood pH 7.20 (7.35-7.45) Arterial Blood pCO2 at Patient Temp 19 mmHg (35-46) Arterial Blood pO2 at Patient Temp 99 mmHg (65-108) Arterial Blood HCO3 7 mmol/L (21-28) Arterial Blood Base Excess -19 mmol/L (-3-3) Urine Collection Type Unknown Urine Color Yellow Urine Clarity Clear Urine pH 5.0 Urine Specific [place] 1.025 Urine Protein Negative mg/dL (NEG-TRACE) Urine Glucose (UA) >=1000 mg/dL (NEG) Urine Ketones (Stick) 40 mg/dL (NEG) Urine Blood Trace (NEG) Urine Nitrite Negative (NEG) Urine Bilirubin Negative (NEG) Urine Urobilinogen Dipstick 0.2 mg/dL (0.2 mg/dL) Urine Leukocyte Esterase Negative (NEG) Urine RBC Occ /HPF (0-2) Urine WBC 1-4 /HPF (0-4) Urine Squamous Epithelial Cells Few /LPF Urine Bacteria 0 /HPF (0-FEW) Urine Hyaline Casts Few /HPF Urine Mucus Slight /LPF Test 06/10/18 12:30 06/10/18 13:15 06/10/18 14:00 06/10/18 14:17 Sodium Level 137 mmol/L (136-145) Potassium Level 4.4 mmol/L (3.5-5.1) Chloride Level 97 mmol/L (98-107) Carbon Dioxide Level 15 mmol/L (21-32) Anion Gap 25 (6-14) Blood Urea Nitrogen 35 mg/dL (8-26) Creatinine 1.9 mg/dL (0.7-1.3) Estimated GFR (Cockcroft-Gault) 35.6 Glucose Level 617 mg/dL (70-99) 511 mg/dL (70-99) Lactic Acid Level 4.7 mmol/L (0.4-2.0) Calcium Level 8.4 mg/dL (8.5-10.1) Phosphorus Level 3.5 mg/dL (2.6-4.7) Magnesium Level 1.8 mg/dL (1.8-2.4) Nasal Screen MRSA (PCR) Positive (Negative) Glucose (Fingerstick) 381 mg/dL (70-99) Test 06/10/18 15:10 06/10/18 15:45 06/10/18 16:06 06/10/18 17:10 Glucose (Fingerstick) 295 mg/dL (70-99) 283 mg/dL (70-99) 199 mg/dL (70-99) Sodium Level 139 mmol/L (136-145) Potassium Level 3.8 mmol/L (3.5-5.1) Chloride Level 104 mmol/L (98-107) Carbon Dioxide Level 23 mmol/L (21-32) Anion Gap 12 (6-14) Blood Urea Nitrogen 32 mg/dL (8-26) Creatinine 1.6 mg/dL (0.7-1.3) Estimated GFR (Cockcroft-Gault) 43.5 Glucose Level 319 mg/dL (70-99) Calcium Level 8.5 mg/dL (8.5-10.1) Phosphorus Level 2.0 mg/dL (2.6-4.7) Magnesium Level 1.8 mg/dL (1.8-2.4) Test 06/10/18 18:08 06/10/18 19:00 06/10/18 19:08 06/10/18 20:08 Glucose (Fingerstick) 139 mg/dL (70-99) 141 mg/dL (70-99) 153 mg/dL (70-99) Sodium Level 144 mmol/L (136-145) Potassium Level 3.6 mmol/L (3.5-5.1) Chloride Level 108 mmol/L (98-107) Carbon Dioxide Level 27 mmol/L (21-32) Anion Gap 9 (6-14) Blood Urea Nitrogen 27 mg/dL (8-26) Creatinine 1.4 mg/dL (0.7-1.3) Estimated GFR (Cockcroft-Gault) 50.7 Glucose Level 140 mg/dL (70-99) Calcium Level 8.4 mg/dL (8.5-10.1) Phosphorus Level 1.8 mg/dL (2.6-4.7) Magnesium Level 1.6 mg/dL (1.8-2.4) Test 06/10/18 21:34 06/10/18 22:33 06/10/18 22:50 06/11/18 00:02 Glucose (Fingerstick) 93 mg/dL (70-99) 67 mg/dL (70-99) 82 mg/dL (70-99) 170 mg/dL (70-99) Test 06/11/18 02:00 06/11/18 04:15 06/11/18 08:34 Glucose (Fingerstick) 172 mg/dL (70-99) 136 mg/dL (70-99) White Blood Count 10.6 x10^3/uL (4.0-11.0) Red Blood Count 3.82 x10^6/uL (4.30-5.70) Hemoglobin 10.1 g/dL (13.0-17.5) Hematocrit 31.6 % (39.0-53.0) Mean Corpuscular Volume 83 fL (79-100) Mean Corpuscular Hemoglobin 26 pg (25-35) Mean Corpuscular Hemoglobin Concent 32 g/dL (31-37) Red Cell Distribution Width 16.6 % (11.5-14.5) Platelet Count 164 x10^3/uL (140-400) Neutrophils (%) (Auto) 68 % (31-73) Lymphocytes (%) (Auto) 23 % (24-48) Monocytes (%) (Auto) 7 % (0-9) Eosinophils (%) (Auto) 2 % (0-3) Basophils (%) (Auto) 0 % (0-3) Neutrophils # (Auto) 7.3 x10^3uL (1.8-7.7) Lymphocytes # (Auto) 2.4 x10^3/uL (1.0-4.8) Monocytes # (Auto) 0.7 x10^3/uL (0.0-1.1) Eosinophils # (Auto) 0.2 x10^3/uL (0.0-0.7) Basophils # (Auto) 0.0 x10^3/uL (0.0-0.2) Sodium Level 143 mmol/L (136-145) Potassium Level 3.7 mmol/L (3.5-5.1) Chloride Level 109 mmol/L (98-107) Carbon Dioxide Level 26 mmol/L (21-32) Anion Gap 8 (6-14) Blood Urea Nitrogen 22 mg/dL (8-26) Creatinine 1.1 mg/dL (0.7-1.3) Estimated GFR (Cockcroft-Gault) 67.0 Glucose Level 151 mg/dL (70-99) Lactic Acid Level 1.0 mmol/L (0.4-2.0) Calcium Level 8.3 mg/dL (8.5-10.1) Magnesium Level 1.7 mg/dL (1.8-2.4) Review of Systems Review of Systems A 14 point ROS was completed with the following noted as positive: Other systems reviewed and negative. \CONSTITUTIONAL: No fever or chills EYES: No recent changes SKIN: No rash or itching CARDIOVASCULAR: No chest pain, syncope, palpitations, or edema RESPIRATORY: No SOB or cough GASTROINTESTINAL: No nausea, vomiting or abdominal pain NEUROLOGICAL: No headaches or weakness ENDOCRINE: No cold or heat intolerance GENITOURINARY: No urgency or frequency of urination MUSCULOSKELETAL: No back pain or joint pain LYMPHATICS: No enlarged lymph nodes PSYCHIATRIC: No anxiety or depression Assessment and Plan Assessmemt and Plan Problems Medical Problems: (1) CHF (congestive heart failure) Status: Acute (2) Lactic acidemia Status: Acute (3) Renal insufficiency Status: Acute Comment Review of Relevant I have reviewed the following items raciel (where applicable) has been applied. Labs Laboratory Tests Test 06/10/18 09:30 06/10/18 09:40 06/10/18 09:50 06/10/18 10:35 White Blood Count 11.3 x10^3/uL (4.0-11.0) Red Blood Count 4.51 x10^6/uL (4.30-5.70) Hemoglobin 11.8 g/dL (13.0-17.5) Hematocrit 40.3 % (39.0-53.0) Mean Corpuscular Volume 89 fL (79-100) Mean Corpuscular Hemoglobin 26 pg (25-35) Mean Corpuscular Hemoglobin Concent 29 g/dL (31-37) Red Cell Distribution Width 17.6 % (11.5-14.5) Platelet Count 186 x10^3/uL (140-400) Neutrophils (%) (Auto) 89 % (31-73) Lymphocytes (%) (Auto) 5 % (24-48) Monocytes (%) (Auto) 5 % (0-9) Eosinophils (%) (Auto) 0 % (0-3) Basophils (%) (Auto) 0 % (0-3) Neutrophils # (Auto) 10.1 x10^3uL (1.8-7.7) Lymphocytes # (Auto) 0.6 x10^3/uL (1.0-4.8) Monocytes # (Auto) 0.6 x10^3/uL (0.0-1.1) Eosinophils # (Auto) 0.0 x10^3/uL (0.0-0.7) Basophils # (Auto) 0.0 x10^3/uL (0.0-0.2) Segmented Neutrophils % 88 % (35-66) Band Neutrophils % 5 % (0-9) Lymphocytes % 2 % (24-48) Monocytes % 5 % (0-10) Platelet Estimate Adequate (ADEQUATE) Poikilocytosis Present Sodium Level 127 mmol/L (136-145) Potassium Level 5.9 mmol/L (3.5-5.1) Chloride Level 86 mmol/L (98-107) Carbon Dioxide Level 7 mmol/L (21-32) Anion Gap 34 (6-14) Blood Urea Nitrogen 41 mg/dL (8-26) Creatinine 2.3 mg/dL (0.7-1.3) Estimated GFR (Cockcroft-Gault) 28.6 BUN/Creatinine Ratio 18 (6-20) Glucose Level 1006 mg/dL (70-99) Lactic Acid Level 5.8 mmol/L (0.4-2.0) Calcium Level 9.4 mg/dL (8.5-10.1) Phosphorus Level 7.6 mg/dL (2.6-4.7) Magnesium Level 2.1 mg/dL (1.8-2.4) Total Bilirubin 0.8 mg/dL (0.2-1.0) Aspartate Amino Transf (AST/SGOT) 14 U/L (15-37) Alanine Aminotransferase (ALT/SGPT) 15 U/L (16-63) Alkaline Phosphatase 162 U/L (46-116) Creatine Kinase 42 U/L (39-308) Creatine Kinase MB (Mass) 2.5 ng/mL (0.0-3.6) Creatine Kinase MB Relative Index % (0-4) Troponin I Quantitative 0.022 ng/mL (0.000-0.055) HV-Dxs-U-Type Natriuretic Peptide 82179 pg/mL (0-124) Total Protein 6.9 g/dL (6.4-8.2) Albumin 3.3 g/dL (3.4-5.0) Albumin/Globulin Ratio 0.9 (1.0-1.7) Lipase 45 U/L (73-393) Acetone Level Mod pos (NEG) O2 Saturation 96 % (92-99) Arterial Blood pH 7.20 (7.35-7.45) Arterial Blood pCO2 at Patient Temp 19 mmHg (35-46) Arterial Blood pO2 at Patient Temp 99 mmHg (65-108) Arterial Blood HCO3 7 mmol/L (21-28) Arterial Blood Base Excess -19 mmol/L (-3-3) Urine Collection Type Unknown Urine Color Yellow Urine Clarity Clear Urine pH 5.0 Urine Specific [place] 1.025 Urine Protein Negative mg/dL (NEG-TRACE) Urine Glucose (UA) >=1000 mg/dL (NEG) Urine Ketones (Stick) 40 mg/dL (NEG) Urine Blood Trace (NEG) Urine Nitrite Negative (NEG) Urine Bilirubin Negative (NEG) Urine Urobilinogen Dipstick 0.2 mg/dL (0.2 mg/dL) Urine Leukocyte Esterase Negative (NEG) Urine RBC Occ /HPF (0-2) Urine WBC 1-4 /HPF (0-4) Urine Squamous Epithelial Cells Few /LPF Urine Bacteria 0 /HPF (0-FEW) Urine Hyaline Casts Few /HPF Urine Mucus Slight /LPF Test 06/10/18 12:30 06/10/18 13:15 06/10/18 14:00 06/10/18 14:17 Sodium Level 137 mmol/L (136-145) Potassium Level 4.4 mmol/L (3.5-5.1) Chloride Level 97 mmol/L (98-107) Carbon Dioxide Level 15 mmol/L (21-32) Anion Gap 25 (6-14) Blood Urea Nitrogen 35 mg/dL (8-26) Creatinine 1.9 mg/dL (0.7-1.3) Estimated GFR (Cockcroft-Gault) 35.6 Glucose Level 617 mg/dL (70-99) 511 mg/dL (70-99) Lactic Acid Level 4.7 mmol/L (0.4-2.0) Calcium Level 8.4 mg/dL (8.5-10.1) Phosphorus Level 3.5 mg/dL (2.6-4.7) Magnesium Level 1.8 mg/dL (1.8-2.4) Nasal Screen MRSA (PCR) Positive (Negative) Glucose (Fingerstick) 381 mg/dL (70-99) Test 06/10/18 15:10 06/10/18 15:45 06/10/18 16:06 06/10/18 17:10 Glucose (Fingerstick) 295 mg/dL (70-99) 283 mg/dL (70-99) 199 mg/dL (70-99) Sodium Level 139 mmol/L (136-145) Potassium Level 3.8 mmol/L (3.5-5.1) Chloride Level 104 mmol/L (98-107) Carbon Dioxide Level 23 mmol/L (21-32) Anion Gap 12 (6-14) Blood Urea Nitrogen 32 mg/dL (8-26) Creatinine 1.6 mg/dL (0.7-1.3) Estimated GFR (Cockcroft-Gault) 43.5 Glucose Level 319 mg/dL (70-99) Calcium Level 8.5 mg/dL (8.5-10.1) Phosphorus Level 2.0 mg/dL (2.6-4.7) Magnesium Level 1.8 mg/dL (1.8-2.4) Test 06/10/18 18:08 06/10/18 19:00 06/10/18 19:08 06/10/18 20:08 Glucose (Fingerstick) 139 mg/dL (70-99) 141 mg/dL (70-99) 153 mg/dL (70-99) Sodium Level 144 mmol/L (136-145) Potassium Level 3.6 mmol/L (3.5-5.1) Chloride Level 108 mmol/L (98-107) Carbon Dioxide Level 27 mmol/L (21-32) Anion Gap 9 (6-14) Blood Urea Nitrogen 27 mg/dL (8-26) Creatinine 1.4 mg/dL (0.7-1.3) Estimated GFR (Cockcroft-Gault) 50.7 Glucose Level 140 mg/dL (70-99) Calcium Level 8.4 mg/dL (8.5-10.1) Phosphorus Level 1.8 mg/dL (2.6-4.7) Magnesium Level 1.6 mg/dL (1.8-2.4) Test 06/10/18 21:34 06/10/18 22:33 06/10/18 22:50 06/11/18 00:02 Glucose (Fingerstick) 93 mg/dL (70-99) 67 mg/dL (70-99) 82 mg/dL (70-99) 170 mg/dL (70-99) Test 06/11/18 02:00 06/11/18 04:15 06/11/18 08:34 Glucose (Fingerstick) 172 mg/dL (70-99) 136 mg/dL (70-99) White Blood Count 10.6 x10^3/uL (4.0-11.0) Red Blood Count 3.82 x10^6/uL (4.30-5.70) Hemoglobin 10.1 g/dL (13.0-17.5) Hematocrit 31.6 % (39.0-53.0) Mean Corpuscular Volume 83 fL (79-100) Mean Corpuscular Hemoglobin 26 pg (25-35) Mean Corpuscular Hemoglobin Concent 32 g/dL (31-37) Red Cell Distribution Width 16.6 % (11.5-14.5) Platelet Count 164 x10^3/uL (140-400) Neutrophils (%) (Auto) 68 % (31-73) Lymphocytes (%) (Auto) 23 % (24-48) Monocytes (%) (Auto) 7 % (0-9) Eosinophils (%) (Auto) 2 % (0-3) Basophils (%) (Auto) 0 % (0-3) Neutrophils # (Auto) 7.3 x10^3uL (1.8-7.7) Lymphocytes # (Auto) 2.4 x10^3/uL (1.0-4.8) Monocytes # (Auto) 0.7 x10^3/uL (0.0-1.1) Eosinophils # (Auto) 0.2 x10^3/uL (0.0-0.7) Basophils # (Auto) 0.0 x10^3/uL (0.0-0.2) Sodium Level 143 mmol/L (136-145) Potassium Level 3.7 mmol/L (3.5-5.1) Chloride Level 109 mmol/L (98-107) Carbon Dioxide Level 26 mmol/L (21-32) Anion Gap 8 (6-14) Blood Urea Nitrogen 22 mg/dL (8-26) Creatinine 1.1 mg/dL (0.7-1.3) Estimated GFR (Cockcroft-Gault) 67.0 Glucose Level 151 mg/dL (70-99) Lactic Acid Level 1.0 mmol/L (0.4-2.0) Calcium Level 8.3 mg/dL (8.5-10.1) Magnesium Level 1.7 mg/dL (1.8-2.4) Laboratory Tests Test 06/10/18 09:30 06/10/18 09:40 06/10/18 09:50 06/10/18 10:35 White Blood Count 11.3 x10^3/uL (4.0-11.0) Red Blood Count 4.51 x10^6/uL (4.30-5.70) Hemoglobin 11.8 g/dL (13.0-17.5) Hematocrit 40.3 % (39.0-53.0) Mean Corpuscular Volume 89 fL (79-100) Mean Corpuscular Hemoglobin 26 pg (25-35) Mean Corpuscular Hemoglobin Concent 29 g/dL (31-37) Red Cell Distribution Width 17.6 % (11.5-14.5) Platelet Count 186 x10^3/uL (140-400) Neutrophils (%) (Auto) 89 % (31-73) Lymphocytes (%) (Auto) 5 % (24-48) Monocytes (%) (Auto) 5 % (0-9) Eosinophils (%) (Auto) 0 % (0-3) Basophils (%) (Auto) 0 % (0-3) Neutrophils # (Auto) 10.1 x10^3uL (1.8-7.7) Lymphocytes # (Auto) 0.6 x10^3/uL (1.0-4.8) Monocytes # (Auto) 0.6 x10^3/uL (0.0-1.1) Eosinophils # (Auto) 0.0 x10^3/uL (0.0-0.7) Basophils # (Auto) 0.0 x10^3/uL (0.0-0.2) Segmented Neutrophils % 88 % (35-66) Band Neutrophils % 5 % (0-9) Lymphocytes % 2 % (24-48) Monocytes % 5 % (0-10) Platelet Estimate Adequate (ADEQUATE) Poikilocytosis Present Sodium Level 127 mmol/L (136-145) Potassium Level 5.9 mmol/L (3.5-5.1) Chloride Level 86 mmol/L (98-107) Carbon Dioxide Level 7 mmol/L (21-32) Anion Gap 34 (6-14) Blood Urea Nitrogen 41 mg/dL (8-26) Creatinine 2.3 mg/dL (0.7-1.3) Estimated GFR (Cockcroft-Gault) 28.6 BUN/Creatinine Ratio 18 (6-20) Glucose Level 1006 mg/dL (70-99) Lactic Acid Level 5.8 mmol/L (0.4-2.0) Calcium Level 9.4 mg/dL (8.5-10.1) Phosphorus Level 7.6 mg/dL (2.6-4.7) Magnesium Level 2.1 mg/dL (1.8-2.4) Total Bilirubin 0.8 mg/dL (0.2-1.0) Aspartate Amino Transf (AST/SGOT) 14 U/L (15-37) Alanine Aminotransferase (ALT/SGPT) 15 U/L (16-63) Alkaline Phosphatase 162 U/L (46-116) Creatine Kinase 42 U/L (39-308) Creatine Kinase MB (Mass) 2.5 ng/mL (0.0-3.6) Creatine Kinase MB Relative Index % (0-4) Troponin I Quantitative 0.022 ng/mL (0.000-0.055) YN-Yev-Z-Type Natriuretic Peptide 98892 pg/mL (0-124) Total Protein 6.9 g/dL (6.4-8.2) Albumin 3.3 g/dL (3.4-5.0) Albumin/Globulin Ratio 0.9 (1.0-1.7) Lipase 45 U/L (73-393) Acetone Level Mod pos (NEG) O2 Saturation 96 % (92-99) Arterial Blood pH 7.20 (7.35-7.45) Arterial Blood pCO2 at Patient Temp 19 mmHg (35-46) Arterial Blood pO2 at Patient Temp 99 mmHg (65-108) Arterial Blood HCO3 7 mmol/L (21-28) Arterial Blood Base Excess -19 mmol/L (-3-3) Urine Collection Type Unknown Urine Color Yellow Urine Clarity Clear Urine pH 5.0 Urine Specific [place] 1.025 Urine Protein Negative mg/dL (NEG-TRACE) Urine Glucose (UA) >=1000 mg/dL (NEG) Urine Ketones (Stick) 40 mg/dL (NEG) Urine Blood Trace (NEG) Urine Nitrite Negative (NEG) Urine Bilirubin Negative (NEG) Urine Urobilinogen Dipstick 0.2 mg/dL (0.2 mg/dL) Urine Leukocyte Esterase Negative (NEG) Urine RBC Occ /HPF (0-2) Urine WBC 1-4 /HPF (0-4) Urine Squamous Epithelial Cells Few /LPF Urine Bacteria 0 /HPF (0-FEW) Urine Hyaline Casts Few /HPF Urine Mucus Slight /LPF Test 06/10/18 12:30 06/10/18 13:15 06/10/18 14:00 06/10/18 14:17 Sodium Level 137 mmol/L (136-145) Potassium Level 4.4 mmol/L (3.5-5.1) Chloride Level 97 mmol/L (98-107) Carbon Dioxide Level 15 mmol/L (21-32) Anion Gap 25 (6-14) Blood Urea Nitrogen 35 mg/dL (8-26) Creatinine 1.9 mg/dL (0.7-1.3) Estimated GFR (Cockcroft-Gault) 35.6 Glucose Level 617 mg/dL (70-99) 511 mg/dL (70-99) Lactic Acid Level 4.7 mmol/L (0.4-2.0) Calcium Level 8.4 mg/dL (8.5-10.1) Phosphorus Level 3.5 mg/dL (2.6-4.7) Magnesium Level 1.8 mg/dL (1.8-2.4) Nasal Screen MRSA (PCR) Positive (Negative) Glucose (Fingerstick) 381 mg/dL (70-99) Test 06/10/18 15:10 06/10/18 15:45 06/10/18 16:06 06/10/18 17:10 Glucose (Fingerstick) 295 mg/dL (70-99) 283 mg/dL (70-99) 199 mg/dL (70-99) Sodium Level 139 mmol/L (136-145) Potassium Level 3.8 mmol/L (3.5-5.1) Chloride Level 104 mmol/L (98-107) Carbon Dioxide Level 23 mmol/L (21-32) Anion Gap 12 (6-14) Blood Urea Nitrogen 32 mg/dL (8-26) Creatinine 1.6 mg/dL (0.7-1.3) Estimated GFR (Cockcroft-Gault) 43.5 Glucose Level 319 mg/dL (70-99) Calcium Level 8.5 mg/dL (8.5-10.1) Phosphorus Level 2.0 mg/dL (2.6-4.7) Magnesium Level 1.8 mg/dL (1.8-2.4) Test 06/10/18 18:08 06/10/18 19:00 06/10/18 19:08 06/10/18 20:08 Glucose (Fingerstick) 139 mg/dL (70-99) 141 mg/dL (70-99) 153 mg/dL (70-99) Sodium Level 144 mmol/L (136-145) Potassium Level 3.6 mmol/L (3.5-5.1) Chloride Level 108 mmol/L (98-107) Carbon Dioxide Level 27 mmol/L (21-32) Anion Gap 9 (6-14) Blood Urea Nitrogen 27 mg/dL (8-26) Creatinine 1.4 mg/dL (0.7-1.3) Estimated GFR (Cockcroft-Gault) 50.7 Glucose Level 140 mg/dL (70-99) Calcium Level 8.4 mg/dL (8.5-10.1) Phosphorus Level 1.8 mg/dL (2.6-4.7) Magnesium Level 1.6 mg/dL (1.8-2.4) Test 06/10/18 21:34 06/10/18 22:33 06/10/18 22:50 06/11/18 00:02 Glucose (Fingerstick) 93 mg/dL (70-99) 67 mg/dL (70-99) 82 mg/dL (70-99) 170 mg/dL (70-99) Test 06/11/18 02:00 06/11/18 04:15 06/11/18 08:34 Glucose (Fingerstick) 172 mg/dL (70-99) 136 mg/dL (70-99) White Blood Count 10.6 x10^3/uL (4.0-11.0) Red Blood Count 3.82 x10^6/uL (4.30-5.70) Hemoglobin 10.1 g/dL (13.0-17.5) Hematocrit 31.6 % (39.0-53.0) Mean Corpuscular Volume 83 fL (79-100) Mean Corpuscular Hemoglobin 26 pg (25-35) Mean Corpuscular Hemoglobin Concent 32 g/dL (31-37) Red Cell Distribution Width 16.6 % (11.5-14.5) Platelet Count 164 x10^3/uL (140-400) Neutrophils (%) (Auto) 68 % (31-73) Lymphocytes (%) (Auto) 23 % (24-48) Monocytes (%) (Auto) 7 % (0-9) Eosinophils (%) (Auto) 2 % (0-3) Basophils (%) (Auto) 0 % (0-3) Neutrophils # (Auto) 7.3 x10^3uL (1.8-7.7) Lymphocytes # (Auto) 2.4 x10^3/uL (1.0-4.8) Monocytes # (Auto) 0.7 x10^3/uL (0.0-1.1) Eosinophils # (Auto) 0.2 x10^3/uL (0.0-0.7) Basophils # (Auto) 0.0 x10^3/uL (0.0-0.2) Sodium Level 143 mmol/L (136-145) Potassium Level 3.7 mmol/L (3.5-5.1) Chloride Level 109 mmol/L (98-107) Carbon Dioxide Level 26 mmol/L (21-32) Anion Gap 8 (6-14) Blood Urea Nitrogen 22 mg/dL (8-26) Creatinine 1.1 mg/dL (0.7-1.3) Estimated GFR (Cockcroft-Gault) 67.0 Glucose Level 151 mg/dL (70-99) Lactic Acid Level 1.0 mmol/L (0.4-2.0) Calcium Level 8.3 mg/dL (8.5-10.1) Magnesium Level 1.7 mg/dL (1.8-2.4) Medications Current Medications Insulin Human Regular (HumuLIN R VIAL) 10 unit 1X ONCE IV Last administered on 06/10/18at 10:11; Start 06/10/18 at 09:45; Stop 06/10/18 at 09:46; Status DC Insulin Human Regular 150 unit/ Sodium Chloride 151.5 ml @ 0 mls/hr CONT PRN IV SEE I/O RECORD; Start 06/10/18 at 09:45; Stop 06/10/18 at 21:07; Status DC Insulin Human Regular 150 ml @ 0 mls/hr 1X ONCE IV Last administered on 06/10/18at 10:58; Start 06/10/18 at 09:45; Stop 06/10/18 at 09:46; Status DC Sodium Chloride 1,000 ml @ 1,000 mls/hr 1X ONCE IV Last administered on 06/10/18at 09:58; Start 06/10/18 at 09:45; Stop 06/10/18 at 10:44; Status DC Sodium Chloride 1,000 ml @ 1,000 mls/hr 1X ONCE IV Last administered on 06/10/18at 09:58; Start 06/10/18 at 09:45; Stop 06/10/18 at 10:44; Status DC Sodium Chloride 1,000 ml @ 1,000 mls/hr 1X ONCE IV Last administered on 06/10/18at 10:54; Start 06/10/18 at 10:15; Stop 06/10/18 at 11:14; Status DC Sodium Chloride 1,000 ml @ 250 mls/hr Q4H IV Last administered on 06/10/18at 14:54; Start 06/10/18 at 10:54; Stop 06/10/18 at 21:16; Status DC Aspirin (Children'S Aspirin) 81 mg DAILY PO Last administered on 06/11/18at 08:35; Start 06/11/18 at 09:00 Atorvastatin Calcium (Lipitor) 40 mg HS PO Last administered on 06/10/18 21:13; Start 06/10/18 at 21:00 Bupropion HCl (Wellbutrin Xl) 150 mg DAILY PO Last administered on 06/11/18 08:36; Start 06/11/18 at 09:00 Carvedilol (Coreg) 3.125 mg BIDWMEALS PO ; Start 06/10/18 at 17:00; Stop 06/10/18 at 17:00; Status DC Clopidogrel Bisulfate (Plavix) 75 mg DAILY PO Last administered on 06/11/18at 08:35; Start 06/11/18 at 09:00 Ferrous Sulfate (Feosol) 325 mg DAILY08 PO Last administered on 06/11/18at 08:36; Start 06/11/18 at 08:00 Furosemide (Lasix) 40 mg DAILY PO ; Start 06/11/18 at 09:00; Stop 06/11/18 at 09:00; Status DC Gabapentin (Neurontin) 100 mg QHS PO Last administered on 06/10/18at 21:14; Start 06/10/18 at 21:00 Acetaminophen/ Hydrocodone Bitart (Lortab 5/325) 1 tab PRN QID PRN PO MODERATE PAIN Last administered on 06/10/18at 22:04; Start 06/10/18 at 12:30 Nitroglycerin (Nitrostat) 0.4 mg PRN Q5MIN PRN SL CHEST PAIN; Start 06/10/18 at 12:30 Potassium Chloride (Klor-Con) 10 meq DAILY PO ; Start 06/11/18 at 09:00; Stop 06/11/18 at 09:00; Status DC Zolpidem Tartrate (Ambien) 5 mg PRN QHS PRN PO INSOMNIA; Start 06/10/18 at 12:30 Ergocalciferol (Vitamin D2) 50,000 unit Sa PO ; Start 06/13/18 at 09:00 Donepezil HCl (Aricept) 10 mg DAILY PO Last administered on 06/11/18at 08:35; Start 06/11/18 at 09:00 Duloxetine HCl (Cymbalta) 90 mg DAILY PO Last administered on 06/11/18at 08:35; Start 06/11/18 at 09:00 Levothyroxine Sodium (Synthroid) 25 mcg DAILY06 PO Last administered on 06/11/18at 05:52; Start 06/11/18 at 06:00 Non-Formulary Medication (Lisinopril ) 1.25 mg DAILY PO ; Start 06/11/18 at 09:00; Stop 06/11/18 at 09:00; Status DC Non-Formulary Medication (Memantine HCl/ Donepezil HCl (Namzaric 28 mg-10 mg Capsule)) 1 each DAILY PO ; Start 06/11/18 at 09:00; Status UNV Memantine (Namenda) 10 mg BID PO Last administered on 06/11/18at 08:35; Start 06/10/18 at 21:00 Dextrose/Sodium Chloride 1,000 ml @ 250 mls/hr Q4H IV Last administered on 06/10/18at 18:00; Start 06/10/18 at 19:30; Stop 06/10/18 at 21:16; Status DC Sodium Chloride 1,000 ml @ 75 mls/hr [id number] IV Last administered on 06/10/18at 21:16; Start 06/10/18 at 21:15 Insulin Glargine (Lantus) 20 units QHS SQ ; Start 06/11/18 at 21:00; Stop 06/11/18 at 21:00; Status DC Insulin Human Lispro (HumaLOG) 10 units TIDWMEALS SQ ; Start 06/11/18 at 08:00 Insulin Glargine (Lantus) 20 units QHS SQ Last administered on 06/10/18at 21:37; Start 06/10/18 at 21:30 Active Scripts Active [place] 5-325 Tablet (Acetaminophen/Hydrocodone Bitart) 1 Each Tablet 1-2 Tab PO Q4-6HRS PRN Reported Ambien (Zolpidem Tartrate) 5 Mg Tablet 5 Mg PO HS PRN Humalog (Insulin Lispro) 100 Unit/1 Ml Insuln.pen 5 Unit SQ TIDWMEALS Aricept (Donepezil Hcl) 10 Mg Tablet 10 Mg PO DAILY Tresiba Flextouch U-100 (Insulin Degludec) 100 Unit/1 Ml Insuln.pen 44 Unit SQ H S Ferrous Sulfate 325 Mg Tablet 1 Tab PO DAILY Namzaric 28 mg-10 mg Capsule (Memantine HCl/Donepezil HCl) 1 Each Cap.spr.24 1 Each PO DAILY Bupropion Xl (Bupropion Hcl) 150 Mg Tab.er.24h 1 Tab PO DAILY Levothyroxine Sodium 25 Mcg Tablet 1 Tab PO DAILY Gabapentin (Gabapentin) 100 Mg Capsule 100 Mg PO QHS Vitamin D3 (Cholecalciferol (Vitamin D3)) 50,000 Unit Capsule 50,000 Unit PO QSA Atorvastatin Calcium 40 Mg Tablet 40 Mg PO HS Lisinopril 2.5 Mg Tablet 1.25 Mg PO DAILY Coreg (Carvedilol) 3.125 Mg Tablet 3.125 Mg PO BIDWMEALS Cymbalta (Duloxetine Hcl) 60 Mg Capsule.dr 90 Mg PO DAILY Potassium Chloride 10 Meq Capsule.er 10 Meq PO DAILY Nitrostat (Nitroglycerin) 0.4 Mg Tab.subl 0.4 Mg SL PRN Q5MIN PRN Furosemide 40 Mg Tablet 1 Tab PO DAILY Clopidogrel (Clopidogrel Bisulfate) 75 Mg Tablet 1 Tab PO DAILY Aspirin 81 Mg Tab.chew 1 Tab PO DAILY Vitals/I & O Vital Sign - Last 24 Hours 06/10/18 06/10/18 06/10/18 06/10/18 09:26 10:09 10:19 10:29 Temp 97.6 97.6 Pulse 116 106 108 104 Resp 19 B/P (MAP) 80/52 (61) 107/53 (71) 103/51 (68) 99/46 (63) Pulse Ox 100 100 100 100 O2 Delivery Room Air Room Air Room Air Room Air 06/10/18 06/10/18 06/10/18 06/10/18 10:39 10:49 10:59 11:09 Pulse 104 108 102 96 B/P (MAP) 111/47 (68) 119/51 (73) 112/52 (72) 104/44 (64) Pulse Ox 100 100 100 100 O2 Delivery Room Air Room Air Room Air Room Air 06/10/18 06/10/18 06/10/18 06/10/18 12:00 13:00 13:00 14:00 Temp 97.0 97.0 Pulse 98 106 102 Resp 18 18 20 B/P (MAP) 95/46 (62) 97/44 (61) 97/44 (61) Pulse Ox 98 96 96 06/10/18 06/10/18 06/10/18 06/10/18 15:00 16:00 17:00 18:00 Pulse 92 96 96 98 Resp 20 20 20 18 B/P (MAP) 82/31 (48) 102/41 (61) 103/46 (65) 107/50 (69) Pulse Ox 94 96 96 96 O2 Delivery Room Air Room Air Room Air Room Air 06/10/18 06/10/18 06/10/18 06/10/18 19:00 20:00 21:00 22:00 Temp 98.7 98.7 Pulse 93 90 95 77 Resp 15 15 10 13 B/P (MAP) 86/42 (57) 87/43 (58) 113/52 (72) 105/53 (70) Pulse Ox 96 94 95 96 O2 Delivery Room Air Room Air Room Air Room Air 06/10/18 06/11/18 06/11/18 06/11/18 23:00 00:00 01:00 02:00 Temp 98.1 98.1 Pulse 81 86 78 83 Resp 12 11 11 12 B/P (MAP) 91/42 (58) 86/34 (51) 101/47 (65) 103/44 (63) Pulse Ox 93 91 92 93 O2 Delivery Room Air Room Air Room Air Room Air 06/11/18 06/11/18 06/11/18 06/11/18 03:00 04:00 05:00 06:00 Temp 98.4 98.4 Pulse 80 81 99 95 Resp 16 16 16 16 B/P (MAP) 102/50 (67) 111/57 (75) 116/53 (74) 110/48 (68) Pulse Ox 95 94 98 100 O2 Delivery Room Air Room Air Room Air Room Air 06/11/18 06/11/18 07:00 08:00 Temp 97.6 97.6 Pulse 78 78 Resp 12 10 B/P (MAP) 119/53 (75) 121/46 (71) Pulse Ox 95 93 O2 Delivery Room Air Room Air Intake and Output 06/10/18 06/10/18 06/11/18 15:00 23:00 07:00 Intake Total 2000 ml 1674 ml 983 ml Output Total 350 ml 400 ml 200 ml Balance 1650 ml 1274 ml 783 ml DEMETRIUS JOAQUIN MD Jun 11, 2018 09:20
--- NOTE | 2018-06-11 09:26 | NUR ---
Report called to BERTA Ortega on 5NO. Pt transferred to [facility] 521.
[2018-06-11] MEDS: IV NORMAL SALINE 1000ML BAG 1,000 ML IV SCH ×2 (10:07→23:37)
--- NOTE | 2018-06-11 11:24 | NUR ---
SS following for discharge planning. SS received notification that pt was from [facility], ; fax [phone]. SS contacted [facility] to verify pt's previous placement. [facility] verified that pt was a skilled resident from there facility and was able to return when medically stable for discharge.
[2018-06-11] MEDS: HYDROcodone/APAP 5/325MG 1 TAB TABLET PO PRN (14:16)
[2018-06-11] MEDS ORDERED: INSULIN GLARGINE 300 UNITS/3 ML INSULN.PEN. SQ SCH (21:00)
[2018-06-11] MEDS: ATORVASTATIN CALCIUM 40 MG TABLET. PO SCH (21:20)
[2018-06-11] MEDS: GABAPENTIN 100 MG CAPSULE. PO SCH (21:20)
[2018-06-11] MEDS: INSULIN GLARGINE 300 UNITS/3 ML INSULN.PEN. SQ SCH (21:28)
[2018-06-11 22:08] LABS: HEMOGLOBIN A1C 11.9 % (4.8-5.6)
[2018-06-12 03:00] VITALS: BP 123/74
--- NOTE | 2018-06-12 04:42 | NUR ---
Spoke wit patient's at beginning of the shift, she wants the physicians to know that patient is usually on a sliding scale, 150-200=5 units novolog, and each additional 50 would add 2 units to the dose, he is also on a po med (?).Monitoring.
[2018-06-12] MEDS: LEVOTHYROXINE 25 MCG TABLET. PO SCH (06:25)
[2018-06-12 07:00] VITALS: BP 133/77
[2018-06-12] MEDS: INSULIN LISPRO 300 UNITS/3 ML INSULN.PEN. SQ SCH ×2 (08:07→12:07)
[2018-06-12] MEDS: buPROPion XL 150 MG TAB.ER.24H. PO SCH (08:40)
[2018-06-12] MEDS: MEMANTINE 10 MG TABLET. PO SCH (08:40)
[2018-06-12] MEDS: FERROUS SULFATE 325 MG TABLET. PO SCH (08:40)
[2018-06-12] MEDS: DONEPEZIL HCL 10 MG TABLET. PO SCH (08:40)
[2018-06-12] MEDS: CLOPIDOGREL BISULFATE 75 MG TABLET PO SCH (08:40)
[2018-06-12] MEDS: ASPIRIN CHEWABLE 81 MG TABLET. PO SCH (08:40)
[2018-06-12] MEDS: DULoxetine HCL 30 MG CAPSULE.DR PO SCH (08:41)
[2018-06-12 11:00] VITALS: BP 150/87
--- NOTE | 2018-06-12 11:31 | SNU/HH DC ---
DISCHARGE ORDERS DISCHARGE INFORMATION: FINAL DIAGNOSIS Problems Medical Problems: (1) CHF (congestive heart failure) Status: Acute (2) Lactic acidemia Status: Acute (3) Renal insufficiency Status: Acute CONDITION ON DISCHARGE: Stable CODE STATUS: Code Status: Full CARE HOME: SNF STAY <30 DAYS: Yes HOSPICE: HOSPICE: No HOSPICE EVAL & TREAT: No LTAC: ADMIT TO LTAC: No POST DISCHARGE ORDERS: ACTIVITY ORDERS: Activity as tolerated WEIGHT BEARING STATUS: No restrictions DIET AFTER DISCHARGE: Cardiac WOUND/INCISION CARE: Change dressing CHECKS AFTER DISCHARGE: CHECKS AFTER DISCHARGE: Check blood press - daily, Check blood sugar, ac/hs TREATMENT/EQUIPMENT ORDERS: ADAPTIVE EQUIPMENT NEEDED: None Physical Therapy For: Evalulation/Treatment Occupational Therapy For: Evaluation/Treatment DISCHARGE MEDICATIONS: Home Meds Active Scripts Hydrocodone/Apap 5-325 (NORCO 5-325 TABLET) 1 Each Tablet, 1-2 TAB PO Q4-6HRS PRN for PAIN, #20 TAB Prov:MUTUNGA,SHYAM [employer]IE[employer] 12/04/17 Reported Medications Zolpidem Tartrate (AMBIEN) 5 Mg Tablet, 5 MG PO HS PRN for INSOMNIA, TAB 0 Refills 11/12/17 Insulin Lispro (HUMALOG) 100 Unit/1 Ml Insuln.pen, 5 UNIT SQ TIDWMEALS, SYR 11/12/17 Donepezil Hcl (ARICEPT) 10 Mg Tablet, 10 MG PO DAILY, TAB 11/12/17 Insulin Degludec (Tresiba Flextouch U-100) 100 Unit/1 Ml Insuln.pen, 44 UNIT SQ HS, EACH 11/09/17 Ferrous Sulfate (FERROUS SULFATE) 325 Mg Tablet, 1 TAB PO DAILY, #30 TAB 3 Refills 08/16/17 Memantine HCl/Donepezil HCl (Namzaric 28 mg-10 mg Capsule) 1 Each Cap.spr.24, 1 EACH PO DAILY, CAP 08/16/17 Bupropion Hcl (BUPROPION XL) 150 Mg Tab.er.24h, 1 TAB PO DAILY, #30 TAB 08/16/17 Levothyroxine Sodium (LEVOTHYROXINE SODIUM) 25 Mcg Tablet, 1 TAB PO DAILY, #30 TAB 5 Refills 08/16/17 Gabapentin (GABAPENTIN ) 100 Mg Capsule, 100 MG PO QHS, CAP 08/16/17 Cholecalciferol (Vitamin D3) (VITAMIN D3) 50,000 Unit Capsule, 76640 UNIT PO QSA, CAP 08/16/17 Atorvastatin Calcium (ATORVASTATIN CALCIUM) 40 Mg Tablet, 40 MG PO HS for FOR CHOLESTEROL, #30 TAB 0 Refills 02/24/17 Lisinopril (LISINOPRIL) 2.5 Mg Tablet, 1.25 MG PO DAILY for FOR HYPERTENSION, #30 TAB 0 Refills 02/24/17 Carvedilol (COREG ) 3.125 Mg Tablet, 3.125 MG PO BIDWMEALS, TAB 02/24/17 Duloxetine Hcl (CYMBALTA) 60 Mg Capsule.dr, 90 MG PO DAILY, CAP 02/24/17 Potassium Chloride (POTASSIUM CHLORIDE) 10 Meq Capsule.er, 10 MEQ PO DAILY, TAB.SR 02/24/17 Nitroglycerin (NITROSTAT) 0.4 Mg Tab.subl, 0.4 MG SL PRN Q5MIN PRN for CHEST PAIN, BOTTLE 09/17/14 Furosemide (FUROSEMIDE) 40 Mg Tablet, 1 TAB PO DAILY, #30 TAB 5 Refills 09/17/14 Clopidogrel Bisulfate (CLOPIDOGREL) 75 Mg Tablet, 1 TAB PO DAILY, #90 TAB 1 Refill 09/17/14 Aspirin (ASPIRIN) 81 Mg Tab.chew, 1 TAB PO DAILY, #30 TAB 3 Refills 04/02/14 ESTUARDO BORDEN III DO Jun 12, 2018 11:31
--- NOTE | 2018-06-12 12:12 | PDOC ---
PROGRESS NOTES Chief Complaint Chief Complaint DKA with encephalopathy History of Present Illness History of Present Illness The patient was laying comfortably in bed today. He states he is feeling much better. His UA was negative. He states his appetite is back up. He has no complaints Vitals Vitals Vital Signs Date Time Temp Pulse Resp B/P (MAP) Pulse Ox O2 Delivery O2 Flow Rate FiO2 06/12/18 11:00 98.1 90 16 150/87 (108) 96 Room Air 98.1 Physical Exam General: Alert, Oriented X3, Cooperative, No acute distress, Other (sleepy, weak looking) Heart: Regular rate, Normal S1, Normal S2, No murmurs Lungs: Clear (No wheezes, rales, or rhonchi) Abdomen: Soft, No tenderness, No masses Extremities: No edema, Normal pulses, No tenderness/swelling Skin: No rashes, No breakdown, No significant lesion Labs LABS Laboratory Tests Test 06/11/18 16:41 06/12/18 07:58 06/12/18 11:21 Glucose (Fingerstick) 150 mg/dL (70-99) 256 mg/dL (70-99) 225 mg/dL (70-99) Review of Systems Review of Systems Patient denies fevers, chills, N/V, CP, SOB, and diarrhea Assessment and Plan Assessmemt and Plan Problems Medical Problems: (1) CHF (congestive heart failure) Status: Acute (2) Lactic acidemia Status: Acute (3) Renal insufficiency Status: Acute Assessment: Metabolic encephalopathy multifactorial - secondary to DKA with some element of dementia SNU resident Hypotension Elevated lactated sec to DKA SIRS secondary to DKA Increase in anion gap acidosis Pseudohyponatremia 127, resolved Hyperkalemia 5.9, resolved Hyperchloremia, resolved Acidosis metabolic, resolved Plan: Anion gap closed- 8 All the electrolyte abnormalities resolved Keep current 20 units daily at bedtime-if blood sugars are running high thru the day, then might need to resume his home dose which is 44 units daily at bedtime Hgb A1c- 11.9 NS 75cc/h PT/OT F/u labs home meds DVT prophylaxis Full code Back to SNU on discharge today- [facility] Comment Review of Relevant I have reviewed the following items raciel (where applicable) has been applied. Labs Laboratory Tests Test 06/10/18 12:30 06/10/18 13:15 06/10/18 14:00 06/10/18 14:17 Sodium Level 137 mmol/L (136-145) Potassium Level 4.4 mmol/L (3.5-5.1) Chloride Level 97 mmol/L (98-107) Carbon Dioxide Level 15 mmol/L (21-32) Anion Gap 25 (6-14) Blood Urea Nitrogen 35 mg/dL (8-26) Creatinine 1.9 mg/dL (0.7-1.3) Estimated GFR (Cockcroft-Gault) 35.6 Glucose Level 617 mg/dL (70-99) 511 mg/dL (70-99) Lactic Acid Level 4.7 mmol/L (0.4-2.0) Calcium Level 8.4 mg/dL (8.5-10.1) Phosphorus Level 3.5 mg/dL (2.6-4.7) Magnesium Level 1.8 mg/dL (1.8-2.4) Nasal Screen MRSA (PCR) Positive (Negative) Glucose (Fingerstick) 381 mg/dL (70-99) Test 06/10/18 15:10 06/10/18 15:45 06/10/18 16:06 06/10/18 17:10 Glucose (Fingerstick) 295 mg/dL (70-99) 283 mg/dL (70-99) 199 mg/dL (70-99) Sodium Level 139 mmol/L (136-145) Potassium Level 3.8 mmol/L (3.5-5.1) Chloride Level 104 mmol/L (98-107) Carbon Dioxide Level 23 mmol/L (21-32) Anion Gap 12 (6-14) Blood Urea Nitrogen 32 mg/dL (8-26) Creatinine 1.6 mg/dL (0.7-1.3) Estimated GFR (Cockcroft-Gault) 43.5 Glucose Level 319 mg/dL (70-99) Calcium Level 8.5 mg/dL (8.5-10.1) Phosphorus Level 2.0 mg/dL (2.6-4.7) Magnesium Level 1.8 mg/dL (1.8-2.4) Test 06/10/18 18:08 06/10/18 19:00 06/10/18 19:08 4/24/19 20:08 Glucose (Fingerstick) 139 mg/dL (70-99) 141 mg/dL (70-99) 153 mg/dL (70-99) Sodium Level 144 mmol/L (136-145) Potassium Level 3.6 mmol/L (3.5-5.1) Chloride Level 108 mmol/L (98-107) Carbon Dioxide Level 27 mmol/L (21-32) Anion Gap 9 (6-14) Blood Urea Nitrogen 27 mg/dL (8-26) Creatinine 1.4 mg/dL (0.7-1.3) Estimated GFR (Cockcroft-Gault) 50.7 Glucose Level 140 mg/dL (70-99) Calcium Level 8.4 mg/dL (8.5-10.1) Phosphorus Level 1.8 mg/dL (2.6-4.7) Magnesium Level 1.6 mg/dL (1.8-2.4) Test 06/10/18 21:34 06/10/18 22:33 06/10/18 22:50 06/11/18 00:02 Glucose (Fingerstick) 93 mg/dL (70-99) 67 mg/dL (70-99) 82 mg/dL (70-99) 170 mg/dL (70-99) Test 06/11/18 02:00 06/11/18 04:15 06/11/18 08:34 06/11/18 11:51 Glucose (Fingerstick) 172 mg/dL (70-99) 136 mg/dL (70-99) 160 mg/dL (70-99) White Blood Count 10.6 x10^3/uL (4.0-11.0) Red Blood Count 3.82 x10^6/uL (4.30-5.70) Hemoglobin 10.1 g/dL (13.0-17.5) Hematocrit 31.6 % (39.0-53.0) Mean Corpuscular Volume 83 fL (79-100) Mean Corpuscular Hemoglobin 26 pg (25-35) Mean Corpuscular Hemoglobin Concent 32 g/dL (31-37) Red Cell Distribution Width 16.6 % (11.5-14.5) Platelet Count 164 x10^3/uL (140-400) Neutrophils (%) (Auto) 68 % (31-73) Lymphocytes (%) (Auto) 23 % (24-48) Monocytes (%) (Auto) 7 % (0-9) Eosinophils (%) (Auto) 2 % (0-3) Basophils (%) (Auto) 0 % (0-3) Neutrophils # (Auto) 7.3 x10^3uL (1.8-7.7) Lymphocytes # (Auto) 2.4 x10^3/uL (1.0-4.8) Monocytes # (Auto) 0.7 x10^3/uL (0.0-1.1) Eosinophils # (Auto) 0.2 x10^3/uL (0.0-0.7) Basophils # (Auto) 0.0 x10^3/uL (0.0-0.2) Sodium Level 143 mmol/L (136-145) Potassium Level 3.7 mmol/L (3.5-5.1) Chloride Level 109 mmol/L (98-107) Carbon Dioxide Level 26 mmol/L (21-32) Anion Gap 8 (6-14) Blood Urea Nitrogen 22 mg/dL (8-26) Creatinine 1.1 mg/dL (0.7-1.3) Estimated GFR (Cockcroft-Gault) 67.0 Glucose Level 151 mg/dL (70-99) Hemoglobin A1c 11.9 % (4.8-5.6) Lactic Acid Level 1.0 mmol/L (0.4-2.0) Calcium Level 8.3 mg/dL (8.5-10.1) Magnesium Level 1.7 mg/dL (1.8-2.4) Test 06/11/18 16:41 06/12/18 07:58 06/12/18 11:21 Glucose (Fingerstick) 150 mg/dL (70-99) 256 mg/dL (70-99) 225 mg/dL (70-99) Laboratory Tests Test 06/11/18 16:41 06/12/18 07:58 06/12/18 11:21 Glucose (Fingerstick) 150 mg/dL (70-99) 256 mg/dL (70-99) 225 mg/dL (70-99) Medications Current Medications Insulin Human Regular (HumuLIN R VIAL) 10 unit 1X ONCE IV Last administered on 06/10/18at 10:11; Start 06/10/18 at 09:45; Stop 06/10/18 at 09:46; Status DC Insulin Human Regular 150 unit/ Sodium Chloride 151.5 ml @ 0 mls/hr CONT PRN IV SEE I/O RECORD; Start 06/10/18 at 09:45; Stop 06/10/18 at 21:07; Status DC Insulin Human Regular 150 ml @ 0 mls/hr 1X ONCE IV Last administered on 06/10/18at 10:58; Start 06/10/18 at 09:45; Stop 06/10/18 at 09:46; Status DC Sodium Chloride 1,000 ml @ 1,000 mls/hr 1X ONCE IV Last administered on 06/10/18at 09:58; Start 06/10/18 at 09:45; Stop 06/10/18 at 10:44; Status DC Sodium Chloride 1,000 ml @ 1,000 mls/hr 1X ONCE IV Last administered on 06/10/18at 09:58; Start 06/10/18 at 09:45; Stop 06/10/18 at 10:44; Status DC Sodium Chloride 1,000 ml @ 1,000 mls/hr 1X ONCE IV Last administered on 06/10/18at 10:54; Start 06/10/18 at 10:15; Stop 06/10/18 at 11:14; Status DC Sodium Chloride 1,000 ml @ 250 mls/hr Q4H IV Last administered on 06/10/18at 14:54; Start 06/10/18 at 10:54; Stop 06/10/18 at 21:16; Status DC Aspirin (Children'S Aspirin) 81 mg DAILY PO Last administered on 06/12/18at 08:40; Start 06/11/18 at 09:00 Atorvastatin Calcium (Lipitor) 40 mg HS PO Last administered on 06/11/18at 21:20; Start 06/10/18 at 21:00 Bupropion HCl (Wellbutrin Xl) 150 mg DAILY PO Last administered on 06/12/18at 08:40; Start 06/11/18 at 09:00 Carvedilol (Coreg) 3.125 mg BIDWMEALS PO ; Start 06/10/18 at 17:00; Stop 06/10/18 at 17:00; Status DC Clopidogrel Bisulfate (Plavix) 75 mg DAILY PO Last administered on 06/12/18at 08:40; Start 06/11/18 at 09:00 Ferrous Sulfate (Feosol) 325 mg DAILY08 PO Last administered on 06/12/18at 08:40; Start 06/11/18 at 08:00 Furosemide (Lasix) 40 mg DAILY PO ; Start 06/11/18 at 09:00; Stop 06/11/18 at 09:00; Status DC Gabapentin (Neurontin) 100 mg QHS PO Last administered on 06/11/18at 21:20; Start 06/10/18 at 21:00 Acetaminophen/ Hydrocodone Bitart ([place] 5/325) 1 tab PRN QID PRN PO MODERATE PAIN Last administered on 06/11/18at 14:16; Start 06/10/18 at 12:30 Nitroglycerin (Nitrostat) 0.4 mg PRN Q5MIN PRN SL CHEST PAIN; Start 06/10/18 at 12:30 Potassium Chloride (Klor-Con) 10 meq DAILY PO ; Start 06/11/18 at 09:00; Stop 06/11/18 at 09:00; Status DC Zolpidem Tartrate (Ambien) 5 mg PRN QHS PRN PO INSOMNIA Last administered on 06/11/18at 22:08; Start 06/10/18 at 12:30 Ergocalciferol (Vitamin D2) 50,000 unit Sa PO ; Start 06/13/18 at 09:00 Donepezil HCl (Aricept) 10 mg DAILY PO Last administered on 06/12/18at 08:40; Start 06/11/18 at 09:00 Duloxetine HCl (Cymbalta) 90 mg DAILY PO Last administered on 06/12/18at 08:41; Start 06/11/18 at 09:00 Levothyroxine Sodium (Synthroid) 25 mcg DAILY06 PO Last administered on 06/12/18at 06:25; Start 06/11/18 at 06:00 Non-Formulary Medication (Lisinopril ) 1.25 mg DAILY PO ; Start 06/11/18 at 09:00; Stop 06/11/18 at 09:00; Status DC Non-Formulary Medication (Memantine HCl/ Donepezil HCl (Namzaric 28 mg-10 mg Capsule)) 1 each DAILY PO ; Start 06/11/18 at 09:00; Status UNV Memantine (Namenda) 10 mg BID PO Last administered on 06/12/18at 08:40; Start 06/10/18 at 21:00 Dextrose/Sodium Chloride 1,000 ml @ 250 mls/hr Q4H IV Last administered on 06/10/18at 18:00; Start 06/10/18 at 19:30; Stop 06/10/18 at 21:16; Status DC Sodium Chloride 1,000 ml @ 75 mls/hr [id number] IV Last administered on 06/11/18at 23:37; Start 06/10/18 at 21:15 Insulin Glargine (Lantus) 20 units QHS SQ ; Start 06/11/18 at 21:00; Stop 06/11/18 at 21:00; Status DC Insulin Human Lispro (HumaLOG) 10 units TIDWMEALS SQ Last administered on 06/12/18at 08:07; Start 06/11/18 at 08:00 Insulin Glargine (Lantus) 20 units QHS SQ Last administered on 06/11/18at 21:28; Start 06/10/18 at 21:30 Active Scripts Active [place] 5-325 Tablet (Acetaminophen/Hydrocodone Bitart) 1 Each Tablet 1-2 Tab PO Q4-6HRS PRN Reported Ambien (Zolpidem Tartrate) 5 Mg Tablet 5 Mg PO HS PRN Humalog (Insulin Lispro) 100 Unit/1 Ml Insuln.pen 5 Unit SQ TIDWMEALS Aricept (Donepezil Hcl) 10 Mg Tablet 10 Mg PO DAILY Tresiba Flextouch U-100 (Insulin Degludec) 100 Unit/1 Ml Insuln.pen 44 Unit SQ HS Ferrous Sulfate 325 Mg Tablet 1 Tab PO DAILY Namzaric 28 mg-10 mg Capsule (Memantine HCl/Donepezil HCl) 1 Each Cap.spr.24 1 Each PO DAILY Bupropion Xl (Bupropion Hcl) 150 Mg Tab.er.24h 1 Tab PO DAILY Levothyroxine Sodium 25 Mcg Tablet 1 Tab PO DAILY Gabapentin (Gabapentin) 100 Mg Capsule 100 Mg PO QHS Vitamin D3 (Cholecalciferol (Vitamin D3)) 50,000 Unit Capsule 50,000 Unit PO QSA Atorvastatin Calcium 40 Mg Tablet 40 Mg PO HS Lisinopril 2.5 Mg Tablet 1.25 Mg PO DAILY Coreg (Carvedilol) 3.125 Mg Tablet 3.125 Mg PO BIDWMEALS Cymbalta (Duloxetine Hcl) 60 Mg Capsule.dr 90 Mg PO DAILY Potassium Chloride 10 Meq Capsule.er 10 Meq PO DAILY Nitrostat (Nitroglycerin) 0.4 Mg Tab.subl 0.4 Mg SL PRN Q5MIN PRN Furosemide 40 Mg Tablet 1 Tab PO DAILY Clopidogrel (Clopidogrel Bisulfate) 75 Mg Tablet 1 Tab PO DAILY Aspirin 81 Mg Tab.chew 1 Tab PO DAILY Vitals/I & O Vital Sign - Last 24 Hours 06/11/18 06/11/18 06/11/18 06/11/18 14:16 15:00 19:00 20:00 Temp 97.6 97.6 97.6 97.6 Pulse 75 89 Resp 19 10 B/P (MAP) 112/53 (72) 155/83 (107) Pulse Ox 96 93 O2 Delivery Room Air Room Air Room Air Room Air 06/11/18 06/12/18 06/12/18 06/12/18 23:00 03:00 07:00 08:00 Temp 97.0 97.0 97.8 97.0 97.0 97.8 Pulse 82 80 90 Resp 10 10 18 B/P (MAP) 135/71 (92) 123/74 (90) 133/77 (95) Pulse Ox 94 96 94 O2 Delivery Room Air Room Air Room Air Room Air 06/12/18 11:00 Temp 98.1 98.1 Pulse 90 Resp 16 B/P (MAP) 150/87 (108) Pulse Ox 96 O2 Delivery Room Air Intake and Output 06/11/18 06/11/18 06/12/18 15:00 23:00 07:00 Intake Total 150 ml 240 ml 1000 ml Output Total 0 ml 200 ml Balance 150 ml 40 ml 1000 ml ESTUARDO BORDEN III DO Jun 12, 2018 12:12
--- NOTE | 2018-06-12 12:21 | PDOC3 ---
[facility]-Discharge Summary Date of Admission: Date of Admission: Jun 10, 2018 Date of Discharge: Date of Discharge: Jun 12, 2018 Admission Diagnosis: Admitting Diagnosis: DKA Discharge Diagnosis: Discharge Diagnosis: Dissolving DKA Procedures: Procedures: None Hospital Course: Hospital Course: Patient is a relatively young [facility] who [facility] He presented in DKA He was admitted we gave him IV fluids IV insulin DVT prophylaxis home meds frequent labs L the past 24-48 hours his symptoms are resolved and his anion gap of has closed This morning I examined him his heart tones were normal his lungs were clear his abdomen was soft. Extremities no edema we plan to discharge Activity: Activity: Resume previous activity Diet: Diet: 2 gr sodium Medications: Home Meds Active Scripts Hydrocodone/Apap 5-325 (NORCO 5-325 TABLET) 1 Each Tablet, 1-2 TAB PO Q4-6HRS PRN for PAIN, #20 TAB Prov:SHYAM [employer] 12/04/17 Reported Medications Zolpidem Tartrate (AMBIEN) 5 Mg Tablet, 5 MG PO HS PRN for INSOMNIA, TAB 0 Refills 11/12/17 Insulin Lispro (HUMALOG) 100 Unit/1 Ml Insuln.pen, 5 UNIT SQ TIDWMEALS, SYR 11/12/17 Donepezil Hcl (ARICEPT) 10 Mg Tablet, 10 MG PO DAILY, TAB 11/12/17 Insulin Degludec (Tresiba Flextouch U-100) 100 Unit/1 Ml Insuln.pen, 44 UNIT SQ HS, EACH 11/09/17 Ferrous Sulfate (FERROUS SULFATE) 325 Mg Tablet, 1 TAB PO DAILY, #30 TAB 3 Refills 08/16/17 Memantine HCl/Donepezil HCl (Namzaric 28 mg-10 mg Capsule) 1 Each Cap.spr.24, 1 EACH PO DAILY, CAP 08/16/17 Bupropion Hcl (BUPROPION XL) 150 Mg Tab.er.24h, 1 TAB PO DAILY, #30 TAB 08/16/17 Levothyroxine Sodium (LEVOTHYROXINE SODIUM) 25 Mcg Tablet, 1 TAB PO DAILY, #30 TAB 5 Refills 08/16/17 Gabapentin (GABAPENTIN ) 100 Mg Capsule, 100 MG PO QHS, CAP 08/16/17 Cholecalciferol (Vitamin D3) (VITAMIN D3) 50,000 Unit Capsule, 09327 UNIT PO QSA, CAP 08/16/17 Atorvastatin Calcium (ATORVASTATIN CALCIUM) 40 Mg Tablet, 40 MG PO HS for FOR CHOLESTEROL, #30 TAB 0 Refills 02/24/17 Lisinopril (LISINOPRIL) 2.5 Mg Tablet, 1.25 MG PO DAILY for FOR HYPERTENSION, #30 TAB 0 Refills 02/24/17 Carvedilol (COREG ) 3.125 Mg Tablet, 3.125 MG PO BIDWMEALS, TAB 02/24/17 Duloxetine Hcl (CYMBALTA) 60 Mg Capsule.dr, 90 MG PO DAILY, CAP 02/24/17 Potassium Chloride (POTASSIUM CHLORIDE) 10 Meq Capsule.er, 10 MEQ PO DAILY, TAB .SR 02/24/17 Nitroglycerin (NITROSTAT) 0.4 Mg Tab.subl, 0.4 MG SL PRN Q5MIN PRN for CHEST PAIN, BOTTLE 09/17/14 Furosemide (FUROSEMIDE) 40 Mg Tablet, 1 TAB PO DAILY, #30 TAB 5 Refills 09/17/14 Clopidogrel Bisulfate (CLOPIDOGREL) 75 Mg Tablet, 1 TAB PO DAILY, #90 TAB 1 Refill 09/17/14 Aspirin (ASPIRIN) 81 Mg Tab.chew, 1 TAB PO DAILY, #30 TAB 3 Refills 04/02/14 Scheduled Aspirin (Aspirin), 1 TAB PO DAILY, (Reported) Atorvastatin Calcium (Atorvastatin Calcium), 40 MG PO HS, (Reported) Bupropion Hcl (Bupropion Xl), 1 TAB PO DAILY, (Reported) Carvedilol (Coreg ), 3.125 MG PO BIDWMEALS, (Reported) Cholecalciferol (Vitamin D3) (Vitamin D3), 50,000 UNIT PO QSA, (Reported) Clopidogrel Bisulfate (Clopidogrel), 1 TAB PO DAILY, (Reported) Donepezil Hcl (Aricept), 10 MG PO DAILY, (Reported) Duloxetine Hcl (Cymbalta), 90 MG PO DAILY, (Reported) Ferrous Sulfate (Ferrous Sulfate), 1 TAB PO DAILY, (Reported) Furosemide (Furosemide), 1 TAB PO DAILY, (Reported) Gabapentin (Gabapentin ), 100 MG PO QHS, (Reported) Insulin Degludec (Tresiba Flextouch U-100), 44 UNIT SQ HS, (Reported) Insulin Lispro (Humalog), 5 UNIT SQ TIDWMEALS, (Reported) Levothyroxine Sodium (Levothyroxine Sodium), 1 TAB PO DAILY, (Reported) Lisinopril (Lisinopril), 1.25 MG PO DAILY, (Reported) Memantine HCl/Donepezil HCl (Namzaric 28 mg-10 mg Capsule), 1 EACH PO DAILY, (Reported) Potassium Chloride (Potassium Chloride), 10 MEQ PO DAILY, (Reported) Scheduled PRN Hydrocodone/Apap 5-325 ([place] 5-325 Tablet), 1-2 TAB PO Q4-6HRS PRN for PAIN Nitroglycerin (Nitrostat), 0.4 MG SL PRN Q5MIN PRN for CHEST PAIN, (Reported) Zolpidem Tartrate (Ambien), 5 MG PO HS PRN for INSOMNIA, (Reported) Total Time: Total Time: 31 minutes ESTUARDO BORDEN III DO Jun 12, 2018 12:21
--- NOTE | 2018-06-12 12:30 | NUR ---
GRZEGORZ following pt. GRZEGORZ phoned and faxed orders to [facility]. Awaiting to hear back on transportation time. SAMEER HAMPTON. Addendum: 06/12/18 at 1504 by JEZ LANTIGUA [place] will scrap picker pt at 1500 via w/c van. Pt reported he will notify his . RN notified.
[2018-06-12] MEDS: IV NORMAL SALINE 1000ML BAG 1,000 ML IV SCH (13:15)
--- NOTE | 2018-06-12 14:57 | NUR ---
Report called to Betsey HAMPTON at [facility]. See orders and nursing communication. Dr. Beltran notified no prescriptions for hydrocodone or zolpidem, patient not on prior to admission and patient denies pain. To dc orders, see orders. Patient and verb. understanding POC and discharge. Patient's requested patient to have SSI. Dr. Beltran notified and to call order to [facility]. Patient ready for discharge when transport arrives with all belongings and copied chart with physician orders.
--- NOTE | 2018-06-12 15:30 | NUR ---
Patient discharge to [facility]. per wheelchair van with all belongings, copied chart and physician orders.
[2018-06-13] MEDS ORDERED: ERGOCALCIFEROL (VITAMIN D2) 50,000 UNIT CAPSULE. PO SCH (09:00)
== END 2018-06-12 15:30 | DRG 981 ==
LOC: ER 09:26 → 1 WEST ICU 10:11 → 5 NORTH 06-11 09:47
PROVIDERS: ADMIT Internal Medicine; ATTEND Internal Medicine
PROC: 0KBT0ZZ Excision of Left Lower Leg Muscle, Open Approach (ICD-10-PCS; principal; 2018-06-10)
DX: E11.10 Type 2 diabetes mellitus with ketoacidosis without coma (principal); G93.41 Metabolic encephalopathy; R65.10 Systemic inflammatory response syndrome (SIRS) of non-infectious origin without acute organ dysfunction; T87.81 Dehiscence of amputation stump; K21.9 Gastro-esophageal reflux disease without esophagitis; I25.10 Atherosclerotic heart disease of native coronary artery without angina pectoris; I50.9 Heart failure, unspecified; I11.0 Hypertensive heart disease with heart failure; F03.90 Unspecified dementia, unspecified severity, without behavioral disturbance, psychotic disturbance, mood disturbance, and anxiety; E78.00 Pure hypercholesterolemia, unspecified; N19 Unspecified kidney failure; F32.9 Major depressive disorder, single episode, unspecified; E86.0 Dehydration; E87.5 Hyperkalemia; E87.8 Other disorders of electrolyte and fluid balance, not elsewhere classified; I95.9 Hypotension, unspecified; J44.9 Chronic obstructive pulmonary disease, unspecified; Z89.422 Acquired absence of other left toe(s); Z89.519 Acquired absence of unspecified leg below knee; Z79.4 Long term (current) use of insulin; Z86.73 Personal history of transient ischemic attack (TIA), and cerebral infarction without residual deficits; Z82.49 Family history of ischemic heart disease and other diseases of the circulatory system; Y92.9 Unspecified place or not applicable
CPT/HCPCS: 36415; 36600; 71045; 80048; 80053; 81001; 82010; 82553; 82805; 82947; 82962; 83036; 83605; 83690; 83735; 83880; 84100; 84484; 85007; 85025; 87040; 87641; 93005; 96361; 96365; 96375; 99292; J1815; J7030; J7042; 99291-25